=== PATIENT | female | born 1975 | race Caucasian/White ===

== ENCOUNTER 2020-11-18 08:33 | Outpatient (AMB) | payer BC, SELFPAY ==
[2020-11-18 08:57] VITALS: BP 130/80; PULSE 80; TEMP 36.1; O2SAT 98; BMI 34.4
--- NOTE | 2020-11-18 08:57 | MHC.PC.OV ---
Vital Signs 11/18/20 08:57 Height 5 ft 4 in Weight 201 lb BMI 34.4 BP 130/80 Pulse 80 Pulse Source Pulse Oximeter Temp 97.0 F Pulse Oximetry (%) 98 Oxygen Delivery Method Room Air HPI physical HPI Details Patient comes in today for her annual physical examination States that she feels okay Denies any headaches or dizziness Denies any chest pains, no SOB No nausea/vomiting, no abdominal pain No change in bowel habits noted Denies any acute urinary symptoms Needs her Montelukast Rx refilled [facility] Medical History (Updated 12/01/22 @ 09:23 by Que Higgins MD) Migraine Obesity (BMI 30-39.9) Anxiety Seasonal allergic rhinitis due to pollen Positive SARAH (antinuclear antibody) Surgical History History of foot surgery Family History Father Stomach cancer Mother Diabetes Hypertension CVD (cardiovascular disease) Brother Healthy adult Sister Healthy adult Daughter No problems noted. Social History Housing: House Alcohol intake: current Alcohol intake frequency: holidays/special occasions only Alcohol type: wine Patient Tobacco Use Status: Never used Tobacco e-Cigarette/Vaping Use: Never Used Second Hand Smoke Exposure: Yes service: No Current occupational status: employed Current occupational exposures/hazards: No Cognitive needs: No Hearing needs: No Vision needs: Yes Questionnaire PHQ-9 (HOL/HEY) Over the last 2 weeks, how often have you been bothered by any of the following problems? 1. Little interest or pleasure in doing things: not at all 2. Feeling down, depressed, or hopeless: not at all 3. Trouble falling or staying asleep, or sleeping too much: not at all 4. Feeling tired or having little energy: not at all 5. Poor appetite or overeating: not at all 6. Feeling bad about yourself - or that you are a failure or have let yourself or your family down: not at all 7. Trouble concentrating on things, such as reading the newspaper or watching television: not at all 8. Moving or speaking so slowly that other people could have noticed. Or the opposite - being so fidgety or restless that you have been moving around a lot more than usual: not at all 9. Thoughts that you would be better off or of hurting yourself in some way: not at all Total score: 0 Depression Screening Interpretation: Negative 55156 - PHQ-9 Billing: Yes Source: Developed by Drs. Luis Regalado, Yani Trinidad, Saurabh Urena and colleagues, with an educational hoiwe from [employer]. Thrive Questionnaire Declines Thrive assessment: No Date Thrive assessed: 11/18/20 I am a: Patient What is your living situation today?: I have a steady place to live Within the past 12 months, did the food you bought not last and you didn't have the money to get more?: Never true Within the past 12 months, did you worry whether your food would run out before you got money to buy more?: Never true Do you have trouble paying for medicines?: No Do you have trouble getting transportation to medical appointments?: No Do you have trouble paying your heating and electricity bill?: No Do you have trouble taking care of your child, family member or friend?: No Do you have trouble with day-to-day activities such as bathing, preparing meals, shopping, managing finances, etc.?: No Are you currently unemployed and looking for a job?: No Are you interested in more education?: No Currently or been in a relationship where the following occur: no concerns reported AUDIT C Alcohol Use Questionnaire (AUDIT-C) 1. How often do you have a drink containing alcohol?: Monthly or less 2. How many drinks containing alcohol do you have on a typical day when you are drinking?: 1 or 2 3. How often do you have six or more drinks on one occasion?: Never Total Score: 1 Score Reviewed/Action Taken: Yes AARON-7 AMB Questionnaire AARON-7 Date AARON - 7 assessed: 11/18/20 Feeling nervous, anxious, or on edge: 0 = Not at all Not being able to stop or control worryin = Not at all Worrying too much about different things: 0 = Not at all Trouble relaxin = Not at all Being so restless that it is hard to sit still: 0 = Not at all Becoming easily annoyed or irritable: 0 = Not at all Feeling afraid as if something awful might happen: 0 = Not at all Total AARON-7 score (0-4 normal; 5-9 mild; 10-14 moderate; 15-21 severe): 0 Source: Developed by Drs. Luis Regalado, Yani Trinidad, Saurabh Urena and colleagues, with an educational howie from [email or web address]. Review of Systems Const Denies anorexia, Denies body aches, Denies chills, Denies fatigue, Denies fever(s), Denies headache(s), Denies malaise and Denies weakness Eyes Denies blurry vision, Denies change in vision, Denies irritation, Denies itchy eyes and Denies other visual disturbances ENT Denies dysphagia, Denies dizziness, Denies ear discharge, Denies otalgia, Denies headache(s), Reports nasal congestion (on and off), Denies neck mass, Denies neck pain, Denies odynophagia, Denies sinus pain, Denies sinus pressure and Denies sore throat Card Denies chest pain at rest, Denies chest pain with activity, Denies rapid heart rate, Denies irregular heart rhythm, Denies palpitations, Denies dyspnea and Denies dyspnea on exertion Resp Denies chest congestion, Denies cough, Denies dyspnea, Denies dyspnea on exertion and Denies wheezing GI Denies abdominal pain, Denies bloating, Denies change in bowel habits, Denies constipation, Denies dysphagia, Denies heartburn, Denies diarrhea, Denies nausea, Denies odynophagia and Denies vomiting Denies hematuria, Denies urinary frequency, Denies dysuria, Denies urinary incontinence and Denies urinary urgency Musc Denies back pain, Denies arthralgias, Denies joint swelling, Denies muscle weakness and Denies neck pain Skin/Breast Denies breast pain, Denies breast mass, Denies change in pigmentation, Denies lesions, Denies rash and Denies unusual bruising Neuro Denies dizziness, Denies headache(s), Denies paresthesias and Denies weakness Psych Denies anxiety Endo Denies fatigue and Denies palpitations [place]/Lymph Denies easy bruising Aller/Immun Denies itchy eyes and Denies wheezing Physical exam (Primary Care) Vital Signs: Last Vital Signs Temp 97.0 F 11/18/20 08:57 Pulse 80 11/18/20 08:57 BP 130/80 11/18/20 08:57 Pulse Ox 98 11/18/20 08:57 Oxygen Delivery Method Room Air 11/18/20 08:57 BMI result Body Mass Index 34.4 Tobacco/Smoking Status: Tobacco use Status Tobacco use date assessed 11/18/20 11/18/20 09:04 Patient Tobacco Use Status Never used Tobacco 11/18/20 09:06 PHQ-9: Total score: 0 Depression Screening Interpretation: Negative Const General: no acute distress, alert and awake Orientation/consciousness: patient oriented x3 HENMT Head: Yes normal to inspection, Yes normocephalic and Yes atraumatic Ears: external ears normal, TM's normal bilaterally and EAC's normal General nose exam: Normal external nose present, No nasal polyps present and No nasal discharge present Face and sinus: Yes normal facial exam and Yes sinuses nontender Mouth: Normal oral and palatal mucosa present, tongue normal and oropharynx normal Teeth and gingiva: dentition normal Throat: Yes posterior oropharynx normal and Yes tonsils normal Eyes Eyelids: Yes eyelids normal Conjunctivae: conjunctivae normal Sclerae: sclerae normal Pupils: Equal, round and reactive pupils present EOM: EOMs intact bilaterally Neck Neck: Yes no lymphadenopathy and Yes supple Thyroid: Thyroid normal and no masses Lymphatic: no lymphadenopathy noted Resp Auscultation: clear to auscultation bilaterally, no crackles, no rales and no wheezes Cardio Rate: regular rate Rhythm: regular rhythm Heart sounds: no murmurs GI Palpation (GI): Soft to palpation, nontender, no guarding and No hepatosplenomegaly present Auscultation: normal bowel sounds General: Yes no CVA tenderness Back/Spine/Pelvis Back: no CVA tenderness Thoracic/Lumbar Spine: thoracic and lumbar spine normal to inspection Skin Lesions: no lesions Rashes: no rashes Neuro General: patient oriented x3 and CN's II-XI intact bilaterally Cranial nerves: Yes Equal, round and reactive pupils present Cognition (Neuro): normal cognition Gait exam (Neuro): Normal gait present Extrem General: Yes no clubbing, cyanosis or edema Assessment and Plan Assessment & Plan (1) Annual physical exam: Code(s): Z00.00 - Encounter for general adult medical examination without abnormal findings Plan: Check labs She is reportedly up-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 Is not due yet for screening colonoscopy (2) Positive SARAH (antinuclear antibody): Comment: has been tested for lupus - NEGATIVE Code(s): R76.8 - Other specified abnormal immunological findings in serum Plan: Will recheck her SARAH, RA and inflammatory markers for follow up Will also check her anti-DS DNA level for further evaluation Advised that if this comes back positive, will need to refer her to rheumatology for further evaluation and management of lupus (3) Seasonal allergic rhinitis due to pollen: Code(s): J30.1 - Allergic rhinitis due to pollen Plan: Continue Montelukast 10 mg QD (Rx refilled), Cetirizine 10 mg QD PRN and Rhinocort Allergy Suspension 32 mcg/act 1 spray in each nostril QD (4) Anxiety: Code(s): F41.9 - Anxiety disorder, unspecified Plan: Continue Citalopram 10 mg QD (5) Obesity (BMI 30-39.9): Code(s): E66.9 - Obesity, unspecified Plan: Reinforced diet/exercise as tolerated/lose weight Plan Follow up in 6 months Orders: Orders Complete Blood Count Auto Diff 11/18/20 Z00.00 - Encounter for general adult medical examination without abnormal findings Comprehensive [place]. Panel Fast 11/18/20 Z00.00 - Encounter for general adult medical examination without abnormal findings, R76.8 - Other specified abnormal immunological findings in serum, E66.9 - Obesity, unspecified UA CC w/rflx Micro + Cult 11/18/20 Z00.00 - Encounter for general adult medical examination without abnormal findings Erythrocyte Sedimentation Rate 11/18/20 M79.7 - Fibromyalgia, R76.8 - Other specified abnormal immunological findings in serum C Reactive Protein 11/18/20 R76.8 - Other specified abnormal immunological findings in serum SARAH Reflex Titer and Pattern 11/18/20 R76.8 - Other specified abnormal immunological findings in serum Anti DNA DS Antibody 11/18/20 R76.8 - Other specified abnormal immunological findings in serum Lipid Panel 11/18/20 Z00.00 - Encounter for general adult medical examination without abnormal findings, E66.9 - Obesity, unspecified TSH reflex Free T4 11/18/20 Z00.00 - Encounter for general adult medical examination without abnormal findings, R76.8 - Other specified abnormal immunological findings in serum, E66.9 - Obesity, unspecified Vitamin D 25-OH Total 11/18/20 E55.9 - Vitamin D deficiency, unspecified, Z00.00 - Encounter for general adult medical examination without abnormal findings Rheumatoid Factor 11/18/20 R76.8 - Other specified abnormal immunological findings in serum Medications: Changed From montelukast 1 tablet Orally Once a day 10 mg PO DAILY To montelukast 1 tablet Orally Once a day 10 mg PO DAILY 90 tabs 3RF 90 days Coding Level of Care Code Est Pt Prev Care 40-64y(14991) Diagnoses Annual physical exam Z00.00 Positive SARAH (antinuclear antibody) R76.8 Seasonal allergic rhinitis due to pollen J30.1 Anxiety F41.9 Obesity (BMI 30-39.9) E66.9 Additional Codes PHQ-9 - 28612 - PHQ-9 Billing: Yes ([id number])
== END 2020-11-18 10:35 ==
LOC: HO.HMGH 08:33
PROVIDERS: PCP Internal Medicine; Visit Provider Internal Medicine
DX: Z00.00 Encounter for general adult medical examination without abnormal findings (principal); R76.8 Other specified abnormal immunological findings in serum; J30.1 Allergic rhinitis due to pollen; F41.9 Anxiety disorder, unspecified; E66.9 Obesity, unspecified
CPT/HCPCS: 99396

== ENCOUNTER 2021-01-08 12:22 | Outpatient (REF) | payer BC, SELFPAY ==
[2021-01-08 13:14] LABS: Influenza A PCR NEGATIVE (Negative); Influenza B PCR NEGATIVE (Negative); Resp Syncy Virus RNA Qual PCR NEGATIVE (Negative); SARS COV2 PCR INHOUSE NEGATIVE (Negative)
== END 2021-01-08 12:23 | disposition home or self-care (01) ==
LOC: HO.LAB 12:22
PROVIDERS: PCP Internal Medicine; Visit Provider Internal Medicine
DX: Z20.822 Contact with and (suspected) exposure to COVID-19 (principal); R43.9 Unspecified disturbances of smell and taste
CPT/HCPCS: 0241U; 36415

== ENCOUNTER → 2021-07-11 13:53 | Outpatient (REF) | payer BC, SELFPAY ==
--- NOTE | 2021-07-11 13:59 | HM_ITS ---
* Total monitoring time 3 days, 5 hours. * Underlying rhythm is sinus. Average rate 81/Min. Range 52 to 158/Min. * No atrial fibrillation or flutter or AV blocks or pauses. * Occasional supraventricular ectopy with minimal burden. * Very rare ventricular ectopy with minimal burden. * No patient events. MTDD
--- NOTE | 2021-07-11 13:59 | CA_ITS ---
Transthoracic Echocardiogram Patient (Last, First, Middle): Ashlie Delgadillo, Gender: Female Date of : 1975 Age: 45 Procedure Date: 07/11/2021 Procedure Type: Transthoracic Echocardiogram Location: OP Height: 162.56 cm Weight: 89.81 kg BSA: 1.95 m2 Heart Rate: bpm BP: 122 / 86 mmHg Supervisor Machine Workers: VH/TO Referring MD: Que Higgins MD Field Operations Supervisor: Chaka Henry MD Symptoms: R06.00 - Dyspnea, unspecified Study Quality: Fair ECG Rhythm: Sinus Conclusions: - Essentially normal study Findings Left Ventricle Normal left ventricular size, thickness, and systolic function. The visually estimated ejection fraction is between 60-65%. Diastolic function is normal for age. Right Ventricle Normal right ventricular cavity size and systolic function. Atria Both atria are normal in size. There is no evidence of interatrial shunt. Aortic Valve The aortic valve structure and function is likely normal. There is no aortic valve stenosis. There is no aortic valve regurgitation. Mitral Valve Normal mitral valve structure and function. There is trace mitral valve regurgitation. There is no mitral valve stenosis. Pulmonic Valve The pulmonic valve was not well visualized. Tricuspid Valve Likely normal tricuspid valve structure and function. There is trace tricuspid valve regurgitation. The right ventricular systolic pressure is normal. The right ventricular systolic pressure is 32 mmHg. Normal right atrial pressure. There is no evidence of pulmonary hypertension. Great Vessels All visible segments of the aorta are normal in size. The pulmonary artery was not well visualized. Venous The inferior vena cava is normal in size and collapses greater than 50% with inspiration. Pericardium/Pleural There is no evidence of pericardial effusion. Prior Study Comparison No prior study available for comparison. Measurements 2D Linear Measurements IVSd: 0.65 0.6-0.9/0.6-1.0 cm LVIDd: 4.94 3.9-5.3/4.2-5.9 cm LVIDd Index: 2.53 2.4-3.2/2.2-3.1 cm/m2 LVIDs: 2.51 2.0-3.6 cm LVPWd: 0.71 0.7-1.1 cm LA Diam: 3.50 2.7-3.8/3.0-4.0 cm LAIDs Index: 1.79 1.5-2.3 cm/m2 LV Mass: 135.04 67-162/88-224 g LV Mass Index: 69.25 43-95/49-115 g/m2 LVOT Diam: 2.00 3.0+(-)1.3 cm 2D Systolic Function EF 4C: 60.00 >55% EF 2C: 66.00 >55% EF BiP: 63.70 >55% Mitral Valve MV Pk E: 1.11 MV PK A: 0.81 MV Decel Time: 139.00 E/A: 1.40 E'Lateral: 12.20 E'Medial: 10.40 E/E' Med: 10.70 E/E' Lat: 9.10 PHT: 41.00 MVA PHT: 5.37 Decel [place]: 7.98 Aortic Valve AoV Pk Jorge: 1.46 AoV Mn Jorge: 1.06 AoV VTI: 0.32 AoV Pk Grad: 9.00 Aov Mn Grad: 5.00 NARINDER Cont.VTI: 2.31 LVOT LVOT Pk Jorge: 1.15 LVOT Mn Jorge: 0.75 LVOT VTI: 0.24 LVOT Pk Grad: 5.00 LVOT Mn Grad: 3.00 LVOT Diam: 2.00 LVOT Area: 3.14 Diastolic Function MV Pk E: 1.11 MV Pk A: 0.81 E/A: 1.40 E'Medial: 10.40 E/E' Med: 10.70 E' Laterial: 12.20 E/E' Lat: 9.10 Right Ventricle TAPSE (mm): 32.00 TVS' Jorge: 13.00 Tricuspid Valve TR Pk Jorge: 2.70 TR Pk Grad: 29.00 RA Press: 3.00 RVSP: 32.00 Great Vessels Aorta Sinus of Valsalva: 2.90 2.0-3.5 cm Ao Asc: 2.90 2.1-3.4 cm Ao Arch: 2.50 Updated in Other Vendor System with Status of Final Chaka Henry MD electronically signed on 07/11/2021 4:12:53 PM with status of Final
== END ==
LOC: HO.CARD 13:53
PROVIDERS: Visit Provider Internal Medicine
DX: R00.2 Palpitations (principal); R06.00 Dyspnea, unspecified
CPT/HCPCS: 93242; 93306

== ENCOUNTER 2022-06-08 08:34 | Outpatient (REF) | payer BC, SELFPAY ==
[2022-06-08 08:51] LABS: MANUAL DIFF FLAG NO
[2022-06-08 09:20] LABS: Basophils Percent Auto 0.6 % (0-2); Eosinophils Absolute Auto 0.1 X10*3/uL (0.0-0.4); Eosinophils Percent Auto 1.7 % (0-4); Hemoglobin 13.7 g/dl (12.0-16.0); Imm Gran Abs Auto 0.01 X10*3/uL (0.00-0.03); Imm Gran Pct Auto 0.2 % (0.0-0.4); Lymphocytes Absolute Auto 2.1 X10*3/uL (1.2-4.9); Lymphocytes Percent Auto 32.6 % (20-40); Mean Corpuscular HGB Conc 33.4 g/dl (31.0-35.0); Mean Corpuscular Hemoglobin 28.2 pg (27.0-33.0); Mean Corpuscular Volume 84.5 fL (80.0-98.0); Mean Platelet Volume 9.7 fL (9.4-12.3); Monocytes Absolute Auto 0.5 X10*3/uL (0.1-1.2); Monocytes Percent Auto 6.9 % (2-11); Neutrophils Absolute Auto 3.8 x10*3/uL (2.0-8.3); Platelet Count 359 X10*3/uL (160-400); Red Blood Count 4.85 X10*6/uL (4.20-5.50); Red Cell Distribution Width 11.9 % (11.0-16.0); White Blood Count 6.6 X10*3/uL (4.8-10.8)
[2022-06-08 09:24] LABS: Appearance Urine Clear; Color Urine Yellow; Glucose Urine UA Negative (Negative); Leukocyte Esterase Urine Negative (Negative); Nitrite Urine Negative (Negative); Urine Blood Negative (Negative); Urine Ketones Negative (Negative); Urine Protein Negative (Neg-Trace)
[2022-06-08 10:09] LABS: Anion Gap 16 (12-20)
[2022-06-08 10:24] LABS: Alanine Aminotransferase 14 U/L (0-31); Alkaline Phosphatase 41 U/L (39-117); Aspartate Amino Transferase 17 U/L (5-31); Bilirubin Total 0.8 mg/dL (0.0-1.0); Calcium 9.4 mg/dL (8.4-10.2); Carbon Dioxide 23 mmol/L (22-29); Chloride 105 mmol/L (96-108); Cholesterol 208 mg/dL; Estimated Glomerular Filt Rate > 60; Glucose Fasting 91 mg/dL (60-99); HDL Cholesterol 61 mg/dL; LDL Cholesterol Calculated 122 mg/dl; Potassium 5.2 mmol/L (3.3-5.1); Sodium 139 mmol/L (135-145); Total Protein 6.9 g/dL (6.5-8.0); Triglycerides 128 mg/dL
[2022-06-08 10:40] LABS: Vitamin D 25-OH Total 33.7 ng/mL (>30)
[2022-06-08 12:01] LABS: Blood Urea Nitrogen 11 mg/dL (9-16)
[2022-06-12 13:08] LABS: Anti Nuclear Antibody Screen POSITIVE (NEGATIVE)
== END 2022-06-08 08:35 | disposition home or self-care (01) ==
LOC: HO.LAB 08:34
PROVIDERS: PCP Internal Medicine; Visit Provider Internal Medicine
DX: Z00.00 Encounter for general adult medical examination without abnormal findings (principal); E55.9 Vitamin D deficiency, unspecified; M25.50 Pain in unspecified joint; E78.00 Pure hypercholesterolemia, unspecified
CPT/HCPCS: 36415; 80053; 80061; 81003; 82306; 84443; 85025; 86038; 86039

== ENCOUNTER 2022-06-29 10:29 | Outpatient (REF) | payer BC, SELFPAY ==
--- NOTE | ~2022-06-29 | XR_ITS ---
EXAMINATION: XR CHEST 2 VIEWS CLINICAL INFORMATION: Respiratory disorders. COMPARISON: Chest radiographs dated 01/13/2018. TECHNIQUE: Frontal and lateral views of the chest were obtained. FINDINGS: The heart, great vessels, pulmonary vasculature and mediastinum are normal. The lungs show no focal infiltrate, effusion or pneumothorax. There is no acute osseous abnormality. XR/XR chest 2V IMPRESSION: No active cardiopulmonary disease.
== END 2022-06-29 10:30 | disposition home or self-care (01) ==
LOC: HO.XRAY 10:29
PROVIDERS: PCP Internal Medicine; Visit Provider Internal Medicine
DX: J98.8 Other specified respiratory disorders (principal)
CPT/HCPCS: 71046

== ENCOUNTER 2022-10-05 09:23 | Outpatient (AMB) | payer BC, SELFPAY ==
[2022-10-05 09:26] VITALS: BP 116/74; PULSE 77; TEMP 36.6; O2SAT 98; BMI 34.5
--- NOTE | 2022-10-05 09:26 | A.OFFVIS_ITS ---
Intake Vital Signs 10/05/22 09:26 Height 5 ft 4 in Weight 201 lb 0.985 oz BMI 34.5 BP 116/74 Blood Pressure Location Lt brachial Position Sitting Pulse 77 Temp 97.9 F Temp Source Skin Pulse Oximetry (%) 98 Intake Visit Reasons: + SARAH Intake Note: New pt presents today to discuss +SARAH. C/o pain in legs and hands, notices more pain when weather change. 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 She relates that she had limb pains as a child but no clear diagnosis was made. After she delivered her child about 6 years ago she seemed to developed more pains involving the wrists, hands, knees, calf muscles and lower back. There was no injury involved in these areas. She thinks the hands are occasionally swollen. She does not have really any hand paresthesias. Most of these pains are worse when she is more physically active. 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 In the past 2 weeks she has had a bit more pain in the left wrist, mostly on the volar aspect and the radial side where she feels a soft tissue lump. The right wrist is similarly painful but not as severe and she feels not really any lump there. She has trouble sleeping at night because of the pains. She has a history of anxiety disorder which is helped with citalopram. She takes natural supplements - turmeric and ibuprofen [id number] - which she thinks is helpful. She did see a gis professor 3- 4 years ago. This was to evaluate the SARAH. They prescribed hydroxychloroquine but she developed nausea and stopped it. Blood tests were done but they did not think she had any inflammatory or autoimmune disease. [facility] Medical History (Updated 10/05/22 @ 13:27 by Jerel Alberto MD) Anxiety Migraine Obesity (BMI 30-39.9) Positive SARAH (antinuclear antibody) Seasonal allergic rhinitis due to pollen Surgical History History of foot surgery Family History Father Stomach cancer Mother Diabetes Hypertension CVD (cardiovascular disease) Brother Healthy adult Sister Healthy adult Daughter No problems noted. Social History Housing: House Alcohol intake: current Alcohol intake frequency: holidays/special occasions only Alcohol type: wine Patient Tobacco Use Status: Never used Tobacco e-Cigarette/Vaping Use: Never Used Second Hand Smoke Exposure: Yes service: No Current occupational status: employed Cognitive needs: No Hearing needs: No Vision needs: No Female Reproductive History Menstrual Total pregnancies: 1 Number of Living Children: 1 Review of Systems Const Details: Daytime fatigue and sleepiness. Sleep is disrupted by rolling over and experiencing pain. Negative for appetite change, weight change, fever, chills, malaise Eyes Details: Itchy eyes at times attributed to allergies. She said allergy shots made her feel worse. She gets occasional headache she relates to sinusitis. Negative for vision change, dry eyes and dizziness ENT Details: Intermittent sinus congestion pain, sometimes associated with drainage from the left ear. She denies any hearing loss. Negative for hearing change, tinnitus, oral ulcer, nose bleeds and oral dryness. Card Details: Negative chest pain, edema and syncope Resp Details: Negative for SOB, cough and wheezing GI Details: Occasional heartburn. Negative nausea, abdominal pain, bowel changes, diarrhea, constipation and bloody stool. Details: Negative for dysuria, hematuria, nocturia, decreased force/flow and genital discharge Skin/Breast Details: She gets skin rash bone exposure to metal jewelry. Presently no itching, rash, hives, Raynaud's symptoms, sun sensitivity, and skin cancer Neuro Details: Negative for epilepsy, palsy, stroke, changes in speech, tingling and weakness Psych Details: Negative for anxiety, depression and stress Endo Details: Negative for polyuria and polydypsia [place]/Lymph Details: Negative for excessive bruising or bleeding. Physical Exam Vital Signs: Last Vital Signs Temp 97.9 F 10/05/22 09:26 Pulse 77 10/05/22 09:26 BP 116/74 10/05/22 09:26 Pulse Ox 98 10/05/22 09:26 BMI result Body Mass Index 34.5 APPEARANCE: Patient in no acute distress EYES no redness, pupils equal and reactive to light, eyelids normal EARS: Right: External ear normal, canal clear and tympanic membrane normal. Left: The ear canal seems normal. There is a slight bit of redness in the the superior aspect of the tympanic membrane. I think there is a defect in the membrane anteriorly. No drainage noted in the canal. NOSE/SINUS: Airflow through both nares, no nasal discharge, no bleeding THROAT: Oral mucosa moist, no ulcerations NECK: No thyromegaly or masses, no adenopathy, trachea midline. HEART: Regulrar rhythm, S1-S2 heard, no murmurs, rubs or gallops. LUNG: Clear to percussion and auscultation ABD: Normal bowel sounds, no organomegaly, masses or tenderness. EXTREMITIES: No edema, no calf tenderness, normal peripheral pulses. NEURO: Oriented and alert x3. No focal weakness. Reflexes symmetric. Gait normal. SKIN: No inflammatory or neoplastic lesions. Normal color and turgor JOINT EXAM:.?? Cervical Spine:.? Mild pain with extremes of motion. Slight cervical muscle tenderness. Thoracic Spine:.? No scoliosis.? No tenderness on palpation. Lumbar Spine:.? Alignment normal.? Mild pain with extremes of motion but no tenderness. Chest Wall:.? No tenderness, swelling, increased warmth or erythema. Hands:.? Normal pain-free range of motion without tenderness, swelling, increased warmth or erythema. Able to make a full fist and has a good gameplay engineer strength. Wrists: Right:? Normal pain-free range of motion with slight tenderness on the radial and volar aspect. That area has no swelling,increased warmth or erythema. Left: Mild pain felt on the radial aspect with the extremes of flexion or extension. There is some mild tenderness along the radial and volar aspect. There is a thickening in the soft tissues is suggestive of a ganglion cyst. No redness or warmth. Elbows:. Normal pain-free range of motion without tenderness, swelling, increased warmth or erythema. Shoulders:.?? Full range of motion without pain. No tenderness, weakness, swelling, increased warmth or erythema. Hips:.? Full range of motion without pain. Hip bursa:.? No tenderness. Knees:.?? Normal pain-free range of motion without tenderness, swelling, increased warmth or erythema.? There is no effusion or crepitation Ankles:.? Normal pain-free range of motion without tenderness, swelling, increased warmth or erythema. Feet:.? Normal pain-free range of motion without tenderness, swelling, increased warmth or erythema. Tender points:.? Mild tenderness to digital palpation at the trapezius, , lateral epicondyle, knees, greater trochanter area bilaterally. ? Results Reviewed Results Reviewed: Laboratory Tests 12/06/18 12/06/18 06/08/22 17:53 Unknown 08:50 WBC 6.6 Hgb 13.7 ESR 16 C-Reactive Protein 2.49 H TSH 06/08/22 08:50 WBC Hgb ESR C-Reactive Protein TSH 0.60 04/2199 labs from [facility]: SARAH positive but anti DNA negative Assessment & Plan Assessment & Plan (1) Arthralgia: Code(s): M25.50 - Pain in unspecified joint (2) Wrist pain, chronic: Code(s): M25.539 - Pain in unspecified wrist; G89.29 - Other chronic pain (3) Low back pain: Code(s): M54.50 - Low back pain, unspecified (4) Fatigue: Code(s): R53.83 - Other fatigue (5) Positive SARAH (antinuclear antibody): Code(s): R76.8 - Other specified abnormal immunological findings in serum Plan The patient has longstanding migratory joint pains. Today on exam she does not have that much tenderness except for the left wrist. There is no joint swelling. She does a very active job. I suspect the wrist pain is from some tendinitis although there may be also present a ganglion cyst. We will recheck some antibody studies for lupus given the persistently positive SARAH. Will also check urine for protein. The back pain is a longstanding complaint so I think we need to do an x-ray to look for sacroiliitis. There are many tender points so I think her major problem is likely to be fibromyalgia. She is already on an antidepressant. I suggested we try some nighttime cyclobenzaprine 10 mg, 1/2-1 tablet at night. I told her to start it on a night when she was not working the next day in case she gets some morning sedation. I think she has a perforated left tympanic membrane. She gets intermittent drainage there and has not seen ENT in about 3 years. I think it is reasonable to have that re-checked. I told her to call her ENT doctor. Also to further evaluate the daytime sleepiness and fatigue a sleep study may be helpful. She could contact her primary doctor to consider that further. I will get back to her with the results of her studies. Reiview of records, history and exam took 50 minutes. Orders: Orders XR hand wrist LT Today G89.29 - Other chronic pain, M25.539 - Pain in unspecified wrist XR hand wrist RT Today G89.29 - Other chronic pain, M25.539 - Pain in unspecified wrist C Reactive Protein Today R76.8 - Other specified abnormal immunological findings in serum Protein Creatinine Ratio, Ur Today R76.8 - Other specified abnormal immunological findings in serum Erythrocyte Sedimentation Rate Today R76.8 - Other specified abnormal immunological findings in serum Complement C3 Today R76.8 - Other specified abnormal immunological findings in serum Complement C4 Today R76.8 - Other specified abnormal immunological findings in serum Anti DNA DS Antibody Today R76.8 - Other specified abnormal immunological findings in serum Anti Extractable Nuclear Ag Today R76.8 - Other specified abnormal immunological findings in serum XR lumbar spine 2-3V Today M54.50 - Low back pain, unspecified Medications: New cyclobenzaprine 5 - 10 mg (0.5 - 1 x 10 mg) PO BEDTIME PRN 30 tabs 2RF muscle spasm M54.50 - Low back pain, unspecified Coding Level of Care Code New Pt Level 4 (74792) Diagnoses Arthralgia M25.50 Wrist pain, chronic M25.539; G89.29 Low back pain M54.50 Fatigue R53.83 Positive SARAH (antinuclear antibody) R76.8
== END 2022-10-05 10:41 | disposition home or self-care (01) ==
PROVIDERS: PCP Internal Medicine; Visit Provider Internal Medicine Rheumatology
DX: M25.50 Pain in unspecified joint (principal); M25.539 Pain in unspecified wrist; G89.29 Other chronic pain; M54.50 Low back pain, unspecified; R53.83 Other fatigue; R76.8 Other specified abnormal immunological findings in serum
CPT/HCPCS: 99204

== ENCOUNTER 2022-10-05 09:23 | Outpatient (REF) | payer BC, SELFPAY ==
--- NOTE | ~2022-10-05 | XR_ITS ---
EXAMINATION: XR LUMBOSACRAL SPINE CLINICAL INFORMATION: Pain COMPARISON: None available. TECHNIQUE: Three views of the lumbosacral spine. FINDINGS: The vertebral bodies and posterior elements are notable for mild generalized endplate spurring.. The disc spaces are preserved and the vertebral alignment is normal. The paraspinal soft tissues are normal. XR/XR lumbar spine 2-3V IMPRESSION: No acute findings. Mild endplate spurring.
--- NOTE | ~2022-10-05 | XR_ITS ---
Exam: Bilateral hands 3 views each. HISTORY: Pain. FINDINGS: Normal bone mineralization. No evidence for any degenerative or erosive arthritis. No soft tissue swelling or calcifications. XR/XR hand wrist LT IMPRESSION: Normal hands.
--- NOTE | ~2022-10-05 | XR_ITS ---
Exam: Bilateral hands 3 views each. HISTORY: Pain. FINDINGS: Normal bone mineralization. No evidence for any degenerative or erosive arthritis. No soft tissue swelling or calcifications. XR/XR hand wrist RT IMPRESSION: Normal hands.
== END 2022-10-05 09:24 | disposition home or self-care (01) ==
LOC: HO.XRAY 09:23
PROVIDERS: PCP Internal Medicine; Visit Provider Internal Medicine Rheumatology
DX: M54.50 Low back pain, unspecified (principal); R53.83 Other fatigue; R76.8 Other specified abnormal immunological findings in serum; M25.531 Pain in right wrist; M25.532 Pain in left wrist; M79.641 Pain in right hand; M79.642 Pain in left hand
CPT/HCPCS: 72100; 73110; 73130

== ENCOUNTER 2022-10-05 11:07 | Outpatient (REF) | payer BC, SELFPAY ==
[2022-10-05 13:30] LABS: C Reactive Protein 2.49 mg/dL (< or = 0.50)
[2022-10-05 14:22] LABS: Erythrocyte Sedimentation Rate 9 MM/HR (0-20)
[2022-10-05 14:38] LABS: Creatinine Urine 58.38 mg/dL; Total Protein Urine Random < 7 mg/dL (<12)
[2022-10-07 17:34] LABS: Anti DNA DS Antibody <1 IU/mL; SM/Ribonucleoprotein Ab <1.0 NEG AI (<1.0 NEG); Smith Protein <1.0 NEG AI (<1.0 NEG)
[2022-10-07 18:12] LABS: Complement C3 154 mg/dL (83-193)
== END 2022-10-05 11:08 | disposition home or self-care (01) ==
LOC: HO.10HDL 11:07
PROVIDERS: Visit Provider Internal Medicine Rheumatology
DX: R76.8 Other specified abnormal immunological findings in serum (principal)
CPT/HCPCS: 36415; 84156; 85652; 86140; 86160; 86225; 86235

== ENCOUNTER 2022-11-20 09:04 | Outpatient (REF) | payer BC, SELFPAY ==
--- NOTE | 2022-11-20 10:02 | PFT_ITS ---
FLOWS: 1. FEV1 109% of predicted at 3.16 L. 2. FVC 94% of predicted at 3.42 L. 3. FEV1 to FVC ratio of 0.92. 4. No bronchodilator response. LUNG VOLUMES: 1. Total lung capacity 99% of predicted at 5.04 L. 2. Residual volume 80% of predicted at 1.38 L. 3. Slow vital capacity 109% of predicted at 3.65 L. 4. Expiratory reserve volume 36% of predicted at 0.40 L. 5. Diffusion capacity is normal. IMPRESSION: No obstructive or restrictive ventilatory defect. No bronchodilator response. Decreased expiratory reserve volume suggests extrathoracic restriction, likely secondary to abdominal obesity. Suleiman Aviles MD AP/MODL / [id number]
== END 2022-11-20 09:05 | disposition home or self-care (01) ==
LOC: HO.RESP 09:04
PROVIDERS: PCP Internal Medicine; Visit Provider Internal Medicine
DX: R06.00 Dyspnea, unspecified (principal)
CPT/HCPCS: 94010; 94727; 94729

== ENCOUNTER → 2022-11-20 10:02 | Outpatient (BNV) | payer BC, SELFPAY | PROVIDERS: PCP Internal Medicine; Visit Provider Internal Medicine Pulmonary Disease | DX: R06.00 Dyspnea, unspecified (principal) | CPT/HCPCS: 94060; 94727; 94729 ==

== ENCOUNTER 2022-12-01 08:25 | Outpatient (AMB) | payer BC, SELFPAY ==
--- NOTE | 2022-12-01 08:39 | A.OFFPC_ITS ---
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 Accompanied by: Self / Same As Patient Allergies oxymetazoline [From Afrin (oxymetazoline)] Adverse Reaction (Mild, Verified 12/01/22 09:10) Swelling Medication List - Last Reconciled 12/01/22 by Que Higgins MD albuterol sulfate 90 mcg/actuation 2 puffs inhalation Q6H PRN 30 days astaxanthin 12 mg PO DAILY cetirizine (Zyrtec) 10 mg PO DAILY citalopram 20 mg PO DAILY 90 days coenzyme Q10 100 mg PO DAILY cyclobenzaprine 5 - 10 mg (0.5 - 1 x 10 mg) PO BEDTIME PRN evening primrose oil 500 mg PO DAILY lorazepam 0.5 mg PO TID PRN 30 days milk thistle 500 mg PO DAILY montelukast 10 mg PO DAILY 90 days multivitamin 1 tab PO DAILY norgestimate-ethinyl estradiol 0.18/0.215/0.25 mg-35 mcg (28) (Tri-Sprintec (28)) 1 tab PO DAILY turmeric root extract 2,250 mg PO DAILY Tobacco use date assessed: 06/29/22 Dental Screening Dental Screen Date: 12/01/22 Did you have a dental visit in the last 12 months?: Yes Did you have a dental problem in the last 6 months where you did not have access to dental care?: No Was dental information given to patient?: Patient has dentist HPI PE HPI Details Patient comes in today for her annual physical examination States that she feels okay Still has her usual allergies and states that she is starting to experience on and off nasal and sinus congestion again from her fall allergies Is currently taking Cetirizine and Montelukast daily and uses either OTC Astepro or Rhinocort Aqua nasal spray for her allergies, which she states help keep her allergy symptoms controlled She denies any headaches or dizziness Denies any chest pains, no increased SOB lately Recalls getting her [place] [facility] [place] and would like to know how she did on her test No nausea/vomiting, no abdominal pain and no change in bowel habits noted Denies any acute urinary symptoms States that she had her mammogram and her pap smear/ob gyn physician assistant exam done at [facility] about a year ago - was told that these came out negative She is scheduled to have these repeated/rechecked next month in December 2022 [facility] Medical History (Updated 12/01/22 @ 09:23 by Que Higgins MD) Migraine Obesity (BMI 30-39.9) Anxiety Seasonal allergic rhinitis due to pollen Positive SARAH (antinuclear antibody) Surgical History History of foot surgery Family History Father Stomach cancer Mother Diabetes Hypertension CVD (cardiovascular disease) Brother Healthy adult Sister Healthy adult Daughter No problems noted. Social History Housing: House Alcohol intake: current Alcohol intake frequency: holidays/special occasions only Alcohol type: wine Patient Tobacco Use Status: Never used Tobacco e-Cigarette/Vaping Use: Never Used Second Hand Smoke Exposure: Yes service: No Current occupational status: employed Current occupational exposures/hazards: No Cognitive needs: No Hearing needs: No Vision needs: Yes Questionnaire PHQ-9 Over the last 2 weeks, how often have you been bothered by any of the following problems? 1. Little interest or pleasure in doing things: not at all 2. Feeling down, depressed, or hopeless: not at all 3. Trouble falling or staying asleep, or sleeping too much: not at all 4. Feeling tired or having little energy: not at all 5. Poor appetite or overeating: not at all 6. Feeling bad about yourself - or that you are a failure or have let yourself or your family down: not at all 7. Trouble concentrating on things, such as reading the newspaper or watching television: not at all 8. Moving or speaking so slowly that other people could have noticed. Or the opposite - being so fidgety or restless that you have been moving around a lot more than usual: not at all 9. Thoughts that you would be better off or of hurting yourself in some way: not at all Total score: 0 Depression Screening Interpretation: Negative [id number] - PHQ-9 Billing: Yes Source: Developed by Drs. Luis Regalado, Yani Trinidad, Saurabh Urena and colleagues, with an educational howie from [employer]. Thrive Questionnaire Date Thrive assessed: 12/01/22 I am a: Patient What is your living situation today?: I have a steady place to live Within the past 12 months, did the food you bought not last and you didn't have the money to get more?: Never true Within the past 12 months, did you worry whether your food would run out before you got money to buy more?: Never true Do you have trouble paying for medicines?: No Do you have trouble getting transportation to medical appointments?: No Do you have trouble paying your heating and electricity bill?: No Do you have trouble taking care of your child, family member or friend?: No Do you have trouble with day-to-day activities such as bathing, preparing meals, shopping, managing finances, etc.?: No Are you currently unemployed and looking for a job?: No Are you interested in more education?: No Currently or been in a relationship where the following occur: no concerns reported AUDIT C Alcohol Use Questionnaire (AUDIT-C) 1. How often do you have a drink containing alcohol?: Never 2. How many drinks containing alcohol do you have on a typical day when you are drinking?: 1 or 2 3. How often do you have six or more drinks on one occasion?: Never Total Score: 0 Score Reviewed/Action Taken: Yes AARON-7 AMB Questionnaire AARON-7 Date AARON - 7 assessed: 05/19/21 Source: Developed by Drs. Luis Regalado, Yani Trinidad, Saurabh Urena and colleagues, with an educational howie from [employer]. Review of Systems Const Denies chills, Reports difficulty sleeping (at times), Denies fatigue, Denies fever(s) and Denies headache(s) Eyes Denies blurry vision, Denies irritation and Denies itchy eyes ENT Denies dysphagia, Denies dizziness, Denies otalgia, Denies headache(s), Reports nasal congestion (on and off), Denies neck pain, Denies odynophagia, Denies sinus pain and Denies sore throat Card Denies chest pain, Denies palpitations and Reports dyspnea (on and off - chest feels tight at times) Resp Denies chest congestion, Reports cough (occasional, non-productive), Reports dyspnea (on and off - chest feels tight at times) and Denies wheezing GI Denies abdominal pain, Denies constipation, Denies dysphagia, Denies heartburn, Denies diarrhea, Denies nausea, Denies odynophagia and Denies vomiting Denies difficulty voiding, Denies nocturia and Denies dysuria Musc Denies back pain, Denies arthralgias, Denies joint swelling, Denies muscle weakness and Denies neck pain Skin/Breast Denies breast pain, Denies breast mass, Denies change in pigmentation, Denies lesions, Denies rash and Denies unusual bruising Neuro Denies dizziness and Denies headache(s) Psych Denies anxiety and Denies depression Endo Denies fatigue and Denies palpitations [place]/Lymph Denies easy bruising Aller/Immun Denies itchy eyes and Denies wheezing Physical exam (Primary Care) Vital Signs: Last Vital Signs BP 114/78 12/01/22 08:40 BMI result Body Mass Index 34.8 Tobacco/Smoking Status: Tobacco use Status Tobacco use date assessed 06/29/22 12/01/22 08:44 Patient Tobacco Use Status Never used Tobacco 12/01/22 08:44 e-Cigarette/Vaping Use Never Used 12/01/22 08:44 Depression Screening Interpretation: Negative Thrive Assessment: Date of Thrive Assessment Date Thrive assessed 06/29/22 12/01/22 08:44 Currently or been in a relationship where the following occur: no concerns reported Const General: no acute distress and alert Orientation/consciousness: patient oriented x3 HENMT Head: Yes normocephalic and Yes atraumatic Ears: TM's normal bilaterally and EAC's normal General nose exam: No nasal discharge present Face and sinus: No sinus tenderness Teeth and gingiva: dentition normal Throat: Yes posterior oropharynx normal and Yes tonsils normal (no TP congestion) Eyes Eyelids: Yes eyelids normal Conjunctivae: conjunctivae normal Pupils: Equal, round and reactive pupils present EOM: EOMs intact bilaterally Neck Neck: Yes no lymphadenopathy and Yes supple Thyroid: Thyroid normal Resp Auscultation: clear to auscultation bilaterally, no rales and no wheezes Cardio Rate: regular rate Rhythm: regular rhythm Heart sounds: no murmurs GI Palpation (GI): Soft to palpation, nontender and No hepatosplenomegaly present Auscultation: normal bowel sounds General: Yes no CVA tenderness Back/Spine/Pelvis Back: no CVA tenderness Thoracic/Lumbar Spine: thoracic and lumbar spine normal to inspection Skin Lesions: no lesions Rashes: no rashes Neuro General: patient oriented x3, moves all extremities, no focal motor deficits and CN's II-XI intact bilaterally Cranial nerves: Yes Equal, round and reactive pupils present Cognition (Neuro): normal cognition Gait exam (Neuro): Normal gait present Extrem General: Yes no clubbing, cyanosis or edema Assessment and Plan Assessment & Plan (1) Annual physical exam: Code(s): Z00.00 - Encounter for general adult medical examination without abnormal findings Plan: Check labs She is scheduled for her annual mammogram and pap smear/ob gyn physician assistant exam at [facility] next month (2) Seasonal allergic rhinitis due to pollen: Code(s): J30.1 - Allergic rhinitis due to pollen Plan: Continue Montelukast 10 mg QD, Cetirizine 10 mg QD PRN and Rhinocort Allergy Suspension 32 mcg/act 1 to 2 sprays into each nostril BID PRN (3) Dyspnea: Code(s): R06.00 - Dyspnea, unspecified Qualifiers: Dyspnea type: unspecified Qualified Code(s): R06.00 - Dyspnea, un specified Plan: Is most likely related to her allergies (often worst in the spring); advised that her anxiety is also likely making her symptoms feels worse than they actually are Repeat chest x-rays done last June 2022 came out normal PFTs done [place] [facility] [place] also came out grossly normal (4) Intermittent palpitations: Code(s): R00.2 - Palpitations Plan: States that her symptoms (palpitations) occur rarely now Holter monitor and echocardiogram done in June 2021 all came out unrevealing/normal (5) Positive SARAH (antinuclear antibody): Comment: has been tested for lupus - NEGATIVE Code(s): R76.8 - Other specified abnormal immunological findings in serum Plan: Her SARAH came back positive on her labs done at [facility] [place] couple of years ago and again here at [facility] earlier this year (2022) but her double stranded anti-DNA Ab came back negative, which effectively rules out lupus This was rechecked by rheumatology a couple of months ago, which again came back negative She has been advised that her joint symptoms are most likely due to tendinitis Follow up with rheumatology as scheduled or as needed (6) Anxiety: Code(s): F41.9 - Anxiety disorder, unspecified Plan: Continue her Citalopram 10 mg QD and Lorazepam 0.5 mg TID PRN - feels that she is doing well on her current Rx (7) Obesity (BMI 30-39.9): Code(s): E66.9 - Obesity, unspecified Plan: Reinforced diet/exercise as tolerated/lose weight (8) Colon cancer screening: Code(s): Z12.11 - Encounter for screening for malignant neoplasm of colon Plan: Will refer to GI for screening colonoscopy - this will be her index screen as she has never had a colonoscopy done before Plan Follow up in 4 months Orders: Orders Comprehensive [place]. Panel Fast Today E78.00 - Pure hypercholesterolemia, unspecified, Z00.00 - Encounter for general adult medical examination without abnormal findings Lipid Panel Today E78.00 - Pure hypercholesterolemia, unspecified, Z00.00 - Encounter for general adult medical examination without abnormal findings UA CC w/rflx Micro + Cult Today R30.0 - Dysuria, Z00.00 - Encounter for general adult medical examination without abnormal findings Vitamin D 25-OH Total Today E55.9 - Vitamin D deficiency, unspecified, Z00.00 - Encounter for general adult medical examination without abnormal findings Erythrocyte Sedimentation Rate Today M79.7 - Fibromyalgia, Z00.00 - Encounter for general adult medical examination without abnormal findings Complete Blood Count Auto Diff Today Z00.00 - Encounter for general adult medical examination without abnormal findings TSH reflex Free T4 Today E78.00 - Pure hypercholesterolemia, unspecified, Z00.00 - Encounter for general adult medical examination without abnormal findings Referrals Gastroenterology Referral Z12.11 - Encounter for screening for malignant neoplasm of colon Coding Level of Care Code Est Pt Prev Care 40-64y([id number]) Diagnoses Annual physical exam Z00.00 Seasonal allergic rhinitis due to pollen J30.1 Dyspnea, unspecified type R06.00 Dyspnea type: unspecified Intermittent palpitations R00.2 Positive SARAH (antinuclear antibody) R76.8 Anxiety F41.9 Obesity (BMI 30-39.9) E66.9 Colon cancer screening Z12.11
[2022-12-01 08:40] VITALS: BP 114/78; BMI 34.8
== END 2022-12-01 09:38 | disposition home or self-care (01) ==
PROVIDERS: PCP Internal Medicine; Visit Provider Internal Medicine
DX: Z00.00 Encounter for general adult medical examination without abnormal findings (principal); F41.9 Anxiety disorder, unspecified; E66.9 Obesity, unspecified; Z68.34 Body mass index [BMI] 34.0-34.9, adult; J30.1 Allergic rhinitis due to pollen; R00.2 Palpitations
CPT/HCPCS: 99396

== ENCOUNTER 2023-06-07 10:27 | Outpatient (REF) | payer BC, SELFPAY ==
[2023-06-07 10:49] LABS: MANUAL DIFF FLAG NO
[2023-06-07 11:28] LABS: Appearance Urine Clear; Color Urine Yellow; Glucose Urine UA Negative (Negative); Leukocyte Esterase Urine Negative (Negative); Nitrite Urine Negative (Negative); Urine Blood Negative (Negative); Urine Ketones Negative (Negative); Urine Protein Negative (Neg-Trace)
[2023-06-07 11:40] LABS: Basophils Percent Auto 0.5 % (0-2); Eosinophils Absolute Auto 0.1 X10*3/uL (0.0-0.4); Eosinophils Percent Auto 2.2 % (0-4); Hematocrit 42.8 % (37.0-47.0); Hemoglobin 14.1 g/dl (12.0-16.0); Imm Gran Abs Auto 0.02 X10*3/uL (0.00-0.03); Imm Gran Pct Auto 0.3 % (0.0-0.4); Lymphocytes Absolute Auto 1.6 X10*3/uL (1.2-4.9); Lymphocytes Percent Auto 25.8 % (20-40); Mean Corpuscular HGB Conc 32.9 g/dl (31.0-35.0); Mean Corpuscular Hemoglobin 27.5 pg (27.0-33.0); Mean Corpuscular Volume 83.6 fL (80.0-98.0); Mean Platelet Volume 10.2 fL (9.4-12.3); Monocytes Absolute Auto 0.4 X10*3/uL (0.1-1.2); Neutrophils Absolute Auto 4.1 x10*3/uL (2.0-8.3); Neutrophils Percent Auto 65.2 % (45-73); Platelet Count 345 X10*3/uL (160-400); Red Blood Count 5.12 X10*6/uL (4.20-5.50); Red Cell Distribution Width 12.4 % (11.0-16.0); White Blood Count 6.3 X10*3/uL (4.8-10.8)
[2023-06-07 12:18] LABS: Erythrocyte Sedimentation Rate 10 MM/HR (0-20)
[2023-06-07 12:27] LABS: Alanine Aminotransferase 14 U/L (0-31); Alkaline Phosphatase 51 U/L (39-117); Anion Gap 13 (12-20); Aspartate Amino Transferase 19 U/L (5-31); Bilirubin Total 0.5 mg/dL (0.0-1.0); Blood Urea Nitrogen 9 mg/dL (9-16); Calcium 8.9 mg/dL (8.4-10.2); Carbon Dioxide 22 mmol/L (22-29); Chloride 109 mmol/L (96-108); Cholesterol 222 mg/dL (<200); Estimated Glomerular Filt Rate > 60; Glucose Fasting 92 mg/dL (60-99); HDL Cholesterol 50 mg/dL (>40); LDL Cholesterol Calculated 155 mg/dL (<100); Potassium 4.7 mmol/L (3.3-5.1); Sodium 139 mmol/L (135-145); Total Protein 7.5 g/dL (6.5-8.0); Triglycerides 89 mg/dL (<150)
[2023-06-07 12:32] LABS: TSH reflex Free T4 0.55 uIU/mL (0.32-4.0); Vitamin D 25-OH Total 35.6 ng/mL (>30)
== END 2023-06-07 10:28 | disposition home or self-care (01) ==
LOC: HO.LAB 10:27
PROVIDERS: PCP Internal Medicine; Visit Provider Internal Medicine
DX: Z00.00 Encounter for general adult medical examination without abnormal findings (principal); E55.9 Vitamin D deficiency, unspecified; E78.00 Pure hypercholesterolemia, unspecified; R30.0 Dysuria; M79.7 Fibromyalgia
CPT/HCPCS: 36415; 80053; 80061; 81003; 82306; 84443; 85025; 85652

== ENCOUNTER 2023-06-21 15:08 | Outpatient (AMB) | payer BC, SELFPAY ==
--- NOTE | 2023-06-21 15:15 | A.OFFPC_ITS ---
Vital Signs 06/21/23 15:17 Height 5 ft 4 in Weight 193 lb 8 oz BMI 33.2 BP 110/72 Blood Pressure Location Lt brachial Position Sitting Pulse 96 Pulse Source Pulse Oximeter Pulse Oximetry (%) 97 Oxygen Delivery Method Room Air Intake Visit Reasons: allergic rhinitis, anxiety Intake Note: Patient is here to follow up on Allergic rhinitis, Anxiety and Lab results . Complaint of coughing Kiln Cleaner Required: No Cto: Not Required per policy Accompanied by: Self / Same As Patient Allergies oxymetazoline [From Afrin (oxymetazoline)] Adverse Reaction (Mild, Verified 06/21/23 15:52) Swelling Medication List - Last Reconciled 06/21/23 by Que Higgins MD albuterol sulfate 90 mcg/actuation 2 puffs inhalation Q6H PRN 30 days amoxicillin-pot clavulanate 875-125 mg 1 tab PO BID 10 days astaxanthin 12 mg PO DAILY cetirizine (Zyrtec) 10 mg PO DAILY coenzyme Q10 100 mg PO DAILY evening primrose oil 500 mg PO DAILY lorazepam 0.5 mg PO TID PRN 30 days montelukast 10 mg PO DAILY 90 days norgestimate-ethinyl estradiol 0.18/0.215/0.25 mg-35 mcg (28) (Tri-Sprintec (28)) 1 tab PO DAILY turmeric root extract 2,250 mg PO DAILY Tobacco use date assessed: 06/21/23 Dental Screening Dental Screen Date: 06/21/23 Did you have a dental visit in the last 12 months?: Yes Did you have a dental problem in the last 6 months where you did not have access to dental care?: No Was dental information given to patient?: Patient has dentist HPI allergic rhinitis, anxiety HPI Details Patient comes in for her follow up visit Relates that she was experiencing increased cough and congestion for at least a couple of weeks and she eventually went to a local urgent care center for further evaluation late last week where she was reportedly diagnosed with pneumonia States that she's had chest x-rays done at the walk-in clinic back then She was prescribed Azithromycin x 5 days as well as Augmentin - states that she just finished her Azithromycin a couple of days ago and is currently still finishing up her Augmentin Feels that her respiratory symptoms have improved somewhat but she still feels congested in her chest and she still has a recurrent cough but denies any SOB - is coughing up some whitish phlegm at times She denies any fever or sore throat Denies any headaches or dizziness Denies any chest pains No nausea/vomiting, no abdominal pain No change in bowel habits noted She had her follow up labs done a couple of weeks ago - to discuss her results Also needs her yearly FMLA forms filled out again [facility] Medical History (Updated 06/22/23 @ 05:23 by Que Higgins MD) Pure hypercholesterolemia Migraine Obesity (BMI 30-39.9) Anxiety Seasonal allergic rhinitis due to pollen Positive SARAH (antinuclear antibody) Surgical History History of foot surgery Family History Father Stomach cancer Mother Diabetes Hypertension CVD (cardiovascular disease) Brother Healthy adult Sister Healthy adult Daughter No problems noted. Social History Housing: House Alcohol intake: current Alcohol intake frequency: holidays/special occasions only Alcohol type: wine Patient Tobacco Use Status: Never used Tobacco e-Cigarette/Vaping Use: Never Used Second Hand Smoke Exposure: Yes service: No Current occupational status: employed Current occupational exposures/hazards: No Cognitive needs: No Hearing needs: No Vision needs: Yes (glasses) Questionnaire PHQ-9 Over the last 2 weeks, how often have you been bothered by any of the following problems? 1. Little interest or pleasure in doing things: not at all 2. Feeling down, depressed, or hopeless: not at all 3. Trouble falling or staying asleep, or sleeping too much: not at all 4. Feeling tired or having little energy: not at all 5. Poor appetite or overeating: not at all 6. Feeling bad about yourself - or that you are a failure or have let yourself or your family down: not at all 7. Trouble concentrating on things, such as reading the newspaper or watching television: not at all 8. Moving or speaking so slowly that other people could have noticed. Or the opposite - being so fidgety or restless that you have been moving around a lot more than usual: not at all 9. Thoughts that you would be better off or of hurting yourself in some way: not at all Total score: 0 Depression Screening Interpretation: Negative Depression Screening Done: Yes 47273 - PHQ-9 Billing: Yes Source: Developed by Drs. Luis Regalado, Yani Trinidad, Saurabh Urena and colleagues, with an educational howie from [employer]. Thrive Questionnaire Date Thrive assessed: 06/21/23 I am a: Patient What is your living situation today?: I have a steady place to live Within the past 12 months, did the food you bought not last and you didn't have the money to get more?: Never true Within the past 12 months, did you worry whether your food would run out before you got money to buy more?: Never true Do you have trouble paying for medicines?: No Do you have trouble getting transportation to medical appointments?: No Do you have trouble paying your heating and electricity bill?: No Do you have trouble taking care of your child, family member or friend?: No Do you have trouble with day-to-day activities such as bathing, preparing meals, shopping, managing finances, etc.?: No Are you currently unemployed and looking for a job?: No Are you interested in more education?: No Currently or been in a relationship where the following occur: no concerns reported THRIVE Score: 0 AUDIT C Alcohol Use Questionnaire (AUDIT-C) 1. How often do you have a drink containing alcohol?: Never 3. How often do you have six or more drinks on one occasion?: Never Total Score: 0 Score Reviewed/Action Taken: Yes AARON-7 AMB Questionnaire AARON-7 Date AARON - 7 assessed: 06/21/23 Feeling nervous, anxious, or on edge: 0 = Not at all Not being able to stop or control worryin = Not at all Worrying too much about different things: 0 = Not at all Trouble relaxin = Not at all Being so restless that it is hard to sit still: 0 = Not at all Becoming easily annoyed or irritable: 0 = Not at all Feeling afraid as if something awful might happen: 0 = Not at all Total AARON-7 score (0-4 normal; 5-9 mild; 10-14 moderate; 15-21 severe): 0 Source: Developed by Drs. Luis Regalado, Yani Trinidad, Saurabh Urena and colleagues, with an educational howie from [employer]. Review of Systems Const Denies chills, Reports fatigue (mild), Denies fever(s) and Denies headache(s) ENT Denies dysphagia, Denies dizziness, Denies otalgia, Denies headache(s), Denies neck pain, Denies odynophagia and Denies sore throat Card Denies chest pain, Denies palpitations and Denies dyspnea Resp Reports chest congestion (mild), Reports cough (recurrent - coughs up minimal whitish phlegm at times), Denies dyspnea and Denies wheezing GI Denies abdominal pain, Denies constipation, Denies dysphagia, Denies heartburn, Denies diarrhea, Denies nausea, Denies odynophagia and Denies vomiting Denies difficulty voiding, Denies nocturia, Denies dysuria and Denies urinary urgency Musc Denies back pain and Denies neck pain Skin/Breast Denies rash Neuro Denies dizziness and Denies headache(s) Endo Reports fatigue (mild) and Denies palpitations Aller/Immun Denies wheezing Physical exam (Primary Care) Vital Signs: Last Vital Signs Pulse 96 06/21/23 15:17 BP 110/72 06/21/23 15:17 Pulse Ox 97 06/21/23 15:17 Oxygen Delivery Method Room Air 06/21/23 15:17 BMI result Body Mass Index 33.2 Tobacco/Smoking Status: Tobacco use Status Tobacco use date assessed 06/21/23 06/21/23 15:19 Patient Tobacco Use Status Never used Tobacco 06/21/23 15:19 e-Cigarette/Vaping Use Never Used 06/21/23 15:19 PHQ-9: PHQ-9 Score PHQ-9: Total score 0 06/21/23 16:00 Depression Screening Interpretation: Negative Thrive Assessment: Date of Thrive Assessment Date Thrive assessed 06/21/23 06/21/23 15:19 Currently or been in a relationship where the following occur: no concerns reported Const General: no acute distress and alert HENMT Ears: TM's normal bilaterally and EAC's normal Throat: Yes posterior oropharynx normal and Yes tonsils normal (no TP congestion) Neck Neck: Yes no lymphadenopathy and Yes supple Thyroid: Thyroid normal Resp Auscultation: no crackles, no rales, rhonchi (scattered) throughout and wheezes (occasional, faint) expiratory wheezes Cardio Rate: regular rate Rhythm: regular rhythm Heart sounds: no murmurs GI Palpation (GI): Soft to palpation and nontender Auscultation: normal bowel sounds General: Yes no CVA tenderness Back/Spine/Pelvis Back: no CVA tenderness Thoracic/Lumbar Spine: No lumbar spinal tenderness Skin Rashes: no rashes Extrem General: Yes no clubbing, cyanosis or edema Results Reviewed Results Reviewed: Laboratory Tests 06/07/23 06/07/23 10:45 10:46 WBC 6.3 Hgb 14.1 Hct 42.8 Plt Count 345 ESR 10 Sodium 139 Potassium 4.7 Creatinine 0.84 Estimated GFR > 60 Fasting Glucose 92 Calcium 8.9 AST 19 ALT 14 Triglycerides 89 Cholesterol 222 H LDL Cholesterol, Calc 155 H HDL Cholesterol 50 25-OH Vitamin D Total 35.6 TSH 0.55 Urine pH 5.0 Ur Specific [place]ck[place] 1.010 Urine Protein Negative Urine Glucose (UA) Negative Urine Blood Negative Urine Nitrite Negative Ur Leukocyte Esterase Negative Assessment and Plan Assessment & Plan (1) Pure hypercholesterolemia: Code(s): E78.00 - Pure hypercholesterolemia, unspecified Plan: Results of her labs done a couple of weeks ago reviewed and discussed with patient - she is advised that her cholesterol levels have increased significantly from previous and her LDL cholesterol is now at 155 mg/dl Reinforced low cholesterol diet Will have patient recheck her labs and fasting lipids in 4 months for follow up (2) Pneumonia: Code(s): J18.9 - Pneumonia, unspecified organism Qualifiers: Pneumonia type: due to unspecified organism Laterality: unspecified laterality Lung location: unspecified part of lung Qualified Code(s): J18.9 - Pneumonia, unspecified organism Plan: Continue Augmentin 875 mg BID; S/P 5 days of Azithromycin recently Have advised patient to continue using her Albuterol HFA 2 inhalations Q 6 hours PRN for symptomatic relief She is advised to call for further instructions if her respiratory symptoms do not clear up completely over the next 2 to 3 weeks or if her symptoms start getting worse again once she completes her current Augmentin Rx (3) Intermittent palpitations: Code(s): R00.2 - Palpitations Plan: States that her symptoms (palpitations) occur rarely now Holter monitor and echocardiogram done in June 2021 all came out unrevealing/normal (4) Seasonal allergic rhinitis due to pollen: Code(s): J30.1 - Allergic rhinitis due to pollen Plan: Continue Montelukast 10 mg QD, Cetirizine 10 mg QD PRN and Rhinocort Allergy Suspension 32 mcg/act 1 to 2 sprays into each nostril BID PRN (5) Positive SARAH (antinuclear antibody): Comment: has been tested for lupus - NEGATIVE Code(s): R76.8 - Other specified abnormal immunological findings in serum Plan: Her SARAH came back positive on her labs done at [facility] and [facility] a couple of years ago and again here at [facility] last year (2022) but her double stranded anti-DNA Ab came back negative, which rules out lupus This was rechecked by rheumatology a few months ago, which again came back negative and she has been advised by rheumatology that her joint symptoms are most likely due to tendinitis Follow up with rheumatology as scheduled or as needed (6) Anxiety: Code(s): F41.9 - Anxiety disorder, unspecified Plan: Continue Citalopram 10 mg QD and Lorazepam 0.5 mg TID PRN - feels that she is doing well on her current Rx (7) Obesity (BMI 30-39.9): Code(s): E66.9 - Obesity, unspecified Plan: Reinforced diet/exercise as tolerated/lose weight Plan Follow up in 4 months Her FMLA forms have also been filled out and completed today - patient will be contacted to come by the office and pick these up at any time Orders: Orders Comprehensive [place]. Panel Fast 4 Months E78.00 - Pure hypercholesterolemia, unspecified Lipid Panel 4 Months E78.00 - Pure hypercholesterolemia, unspecified Coding Level of Care Code Est Pt Level 4 (22406) Diagnoses Pure hypercholesterolemia E78.00 Pneumonia due to infectious organism, unspecified laterality, unspecified part of lung J18.9 Pneumonia type: due to unspecified organism Laterality: unspecified laterality Lung location: unspecified part of lung Intermittent palpitations R00.2 Seasonal allergic rhinitis due to pollen J30.1 Positive SARAH (antinuclear antibody) R76.8 Anxiety F41.9 Obesity (BMI 30-39.9) E66.9
[2023-06-21 15:17] VITALS: BP 110/72; PULSE 96; O2SAT 97; BMI 33.2
== END 2023-06-21 16:13 | disposition home or self-care (01) ==
PROVIDERS: PCP Internal Medicine; Visit Provider Internal Medicine
DX: E78.00 Pure hypercholesterolemia, unspecified (principal); E66.9 Obesity, unspecified; Z68.33 Body mass index [BMI] 33.0-33.9, adult; J18.9 Pneumonia, unspecified organism; R00.2 Palpitations; J30.1 Allergic rhinitis due to pollen; R76.8 Other specified abnormal immunological findings in serum; F41.9 Anxiety disorder, unspecified
CPT/HCPCS: 99214

== ENCOUNTER 2024-02-05 07:09 | Outpatient (REF) | payer BC, SELFPAY ==
[2024-02-05 08:15] LABS: Alanine Aminotransferase 22 U/L (0-31); Albumin Level 3.9 g/dL (3.5-5.0); Alkaline Phosphatase 55 U/L (39-117); Anion Gap 12 (12-20); Aspartate Amino Transferase 22 U/L (5-31); Bilirubin Total 0.9 mg/dL (0.0-1.0); Blood Urea Nitrogen 9 mg/dL (9-16); Calcium 9.3 mg/dL (8.4-10.2); Carbon Dioxide 26 mmol/L (22-29); Chloride 105 mmol/L (96-108); Cholesterol 231 mg/dL (<200); Estimated Glomerular Filt Rate > 60; Glucose Fasting 96 mg/dL (60-99); HDL Cholesterol 56 mg/dL (>40); LDL Cholesterol Calculated 150 mg/dL (<100); Potassium 4.1 mmol/L (3.3-5.1); Sodium 139 mmol/L (135-145); Total Protein 6.8 g/dL (6.5-8.0); Triglycerides 126 mg/dL (<150)
== END 2024-02-05 07:10 | disposition home or self-care (01) ==
LOC: HO.LAB 07:09
PROVIDERS: PCP Internal Medicine; Visit Provider Internal Medicine
DX: E78.00 Pure hypercholesterolemia, unspecified (principal)
CPT/HCPCS: 36415; 80053; 80061

== ENCOUNTER 2024-02-11 13:01 | Outpatient (AMB) | payer BC, SELFPAY ==
--- NOTE | 2024-02-11 13:20 | MHC.PC.OV ---
Vital Signs 02/11/24 13:30 Height 5 ft 4 in Weight 188 lb 8 oz BMI 32.4 BP 106/70 Blood Pressure Location Lt brachial Position Sitting Pulse 74 Pulse Source Pulse Oximeter Pulse Oximetry (%) 98 Oxygen Delivery Method Room Air Intake Visit Reasons: hyperlipidemia, allergic rhinitis Director Surgical Required: No Accompanied by: Self / Same As Patient Allergies oxymetazoline [From Afrin (oxymetazoline)] Adverse Reaction (Mild, Verified 02/11/24 13:41) Swelling Medication List - Last Reconciled 02/11/24 by Que Higgins MD albuterol sulfate 90 mcg/actuation 2 puffs inhalation Q6H PRN 30 days astaxanthin 12 mg PO DAILY cetirizine (Zyrtec) 10 mg PO DAILY coenzyme Q10 100 mg PO DAILY evening primrose oil 500 mg PO DAILY lorazepam 0.5 mg PO TID PRN 30 days montelukast 10 mg PO DAILY 90 days norgestimate-ethinyl estradiol 0.18/0.215/0.25 mg-35 mcg (28) (Tri-Sprintec (28)) 1 tab PO DAILY turmeric root extract 2,250 mg PO DAILY Tobacco use date assessed: 06/21/23 Dental Screening Dental Screen Date: 06/21/23 HPI hyperlipidemia, allergic rhinitis HPI Details Patient comes in today for her follow up visit States that she feels okay She was experiencing some occasional lightheadedness a few weeks ago that she thinks were from her sinuses - states that her symptoms gradually cleared up and have not recurred since she started using her nasal spray and took her Montelukast everyday lately She denies any headaches Denies any chest pains, no increased SOB No nausea/vomiting, no abdominal pain No change in bowel habits noted Needs a couple of her Rx refilled She had her follow up labs done last week - to discuss her results She would also like to get her flu shot today [facility] Medical History Pure hypercholesterolemia Migraine Obesity (BMI 30-39.9) Anxiety Seasonal allergic rhinitis due to pollen Positive SARAH (antinuclear antibody) Surgical History History of foot surgery Family History Father Stomach cancer Mother Diabetes Hypertension CVD (cardiovascular disease) Brother Healthy adult Sister Healthy adult Daughter No problems noted. Social History Housing: House Alcohol intake: current Alcohol intake frequency: holidays/special occasions only Alcohol type: wine Patient Tobacco Use Status: Never used Tobacco e-Cigarette/Vaping Use: Never Used Second Hand Smoke Exposure: Yes service: No Current occupational status: employed Current occupational exposures/hazards: No Cognitive needs: No Hearing needs: No Vision needs: Yes (glasses) Questionnaire Thrive Questionnaire Date Thrive assessed: 06/21/23 THRIVE Score: 0 AUDIT C Alcohol Use Questionnaire (AUDIT-C) 2. How many drinks containing alcohol do you have on a typical day when you are drinking?: 1 or 2 3. How often do you have six or more drinks on one occasion?: Never Total Score: 0 AARON-7 AMB Questionnaire AARON-7 Date AARON - 7 assessed: 06/21/23 Source: Developed by Drs. Luis Regalado, Yani Trinidad, Saurabh Urena and colleagues, with an educational howie from [employer]. Review of Systems Const Denies chills, Denies fatigue, Denies fever(s) and Denies headache(s) ENT Denies dysphagia, Denies dizziness, Denies otalgia, Denies headache(s), Denies nasal congestion (better lately), Denies neck pain, Denies odynophagia, Denies sinus pain and Denies sore throat Card Denies chest pain, Denies palpitations and Denies dyspnea Resp Denies chest congestion, Denies cough and Denies dyspnea GI Denies abdominal pain, Denies constipation, Denies dysphagia, Denies heartburn, Denies diarrhea, Denies nausea, Denies odynophagia and Denies vomiting Denies difficulty voiding, Denies nocturia, Denies dysuria and Denies urinary urgency Musc Denies back pain and Denies neck pain Skin/Breast Denies rash Neuro Denies dizziness and Denies headache(s) Endo Denies fatigue and Denies palpitations Physical exam (Primary Care) Vital Signs: Last Vital Signs Pulse 74 02/11/24 13:30 BP 106/70 02/11/24 13:30 Pulse Ox 98 02/11/24 13:30 Oxygen Delivery Method Room Air 02/11/24 13:30 BMI result Body Mass Index 32.4 Tobacco/Smoking Status: Tobacco use Status Tobacco use date assessed 06/21/23 02/11/24 13:21 Patient Tobacco Use Status Never used Tobacco 02/11/24 13:21 e-Cigarette/Vaping Use Never Used 02/11/24 13:21 Thrive Assessment: Date of Thrive Assessment Date Thrive assessed 06/21/23 02/11/24 13:21 Const General: no acute distress and alert HENMT Ears: TM's normal bilaterally and EAC's normal Throat: Yes posterior oropharynx normal and Yes tonsils normal (no TP congestion) Neck Neck: Yes no lymphadenopathy and Yes supple Thyroid: Thyroid normal Resp Auscultation: not clear to auscultation bilaterally, no rales and no wheezes Cardio Rate: regular rate Rhythm: regular rhythm Heart sounds: no murmurs GI Palpation (GI): Soft to palpation and nontender Auscultation: normal bowel sounds General: Yes no CVA tenderness Back/Spine/Pelvis Back: no CVA tenderness Thoracic/Lumbar Spine: No lumbar spinal tenderness Skin Rashes: no rashes Extrem General: Yes no clubbing, cyanosis or edema Office Procedures Flu Questionnaire Does the patient have a severe egg allergy?: No Does the patient have severe life threatening allergies?: No Does the patient have a fever or illness today?: No Has the patient ever had Guillain-[place] Syndrome?: No Has the patient ever had any past reaction to a flu shot?: No Immunizations Fluarix Triv [id number] (PF) 45 mcg (15 mcg x 3)/0.5 mL IM syringe Performing Provider: Que Higgins MD [facility] Administered by: JAGJIT Barfield on 02/11/24 13:32 Dose Route Admin Location Dispensed Lot Number Expiration Date [facility] Chief Wheelage Clerk 0.5 mL IM Right Deltoid 0.5 mL [id number] 09/18/24 10651-989-09 [email or web address] VIS Given Date VIS Provided VIS Publication Date 02/11/24 Single Vaccine 20 Eligibility Eligibility Date Funding Source Not [facility] Eligible 02/11/24 Private Results Reviewed Results Reviewed: Laboratory Tests 02/05/24 07:19 Sodium 139 Potassium 4.1 Creatinine 0.82 Estimated GFR > 60 Fasting Glucose 96 Calcium 9.3 AST 22 ALT 22 Triglycerides 126 Cholesterol 231 H LDL Cholesterol, Calc 150 H HDL Cholesterol 56 Coding Level of Care Code Est Pt Level 4 (90646) Diagnoses Pure hypercholesterolemia E78.00 Intermittent palpitations R00.2 Seasonal allergic rhinitis due to pollen J30.1 Positive SARAH (antinuclear antibody) R76.8 Anxiety F41.9 Obesity (BMI 30-39.9) E66.9 Assessment & Plan Assessment & Plan (1) Pure hypercholesterolemia: Code(s): E78.00 - Pure hypercholesterolemia, unspecified Category: Medical Plan: Results of her labs done last week reviewed and discussed with patient sSe is advised that her cholesterol levels are still elevated and not much different from her previous numbers - her LDL cholesterol is still at 150 mg/dl (should be at least <130 mg/dl or ideally <100 mg/dl) Reinforced low cholesterol diet Will have patient recheck her labs and fasting lipids in 4 months for follow up (2) Intermittent palpitations: Code(s): R00.2 - Palpitations Category: Medical Plan: States that her symptoms (palpitations) now occur very rarely Holter monitor and echocardiogram done back in June 2021 all came out unrevealing/normal (3) Seasonal allergic rhinitis due to pollen: Code(s): J30.1 - Allergic rhinitis due to pollen Category: Medical Plan: Continue Montelukast 10 mg QD, Cetirizine 10 mg QD PRN and Rhinocort Allergy Suspension 32 mcg/act 1 to 2 sprays into each nostril BID PRN (4) Positive SARAH (antinuclear antibody): Comment: has been tested for lupus - NEGATIVE Code(s): R76.8 - Other specified abnormal immunological findings in serum Category: Medical Plan: Her SARAH came back positive on her labs done at [facility] and [facility] a couple of years ago and again here at [facility] last year (2022) but her double stranded anti-DNA Ab came back negative, which rules out lupus This was rechecked by rheumatology a few months ago, which again came back negative and she has been advised by rheumatology that her joint symptoms are most likely due to tendinitis and she has no evidence of an inflammatory joint disease Follow up with rheumatology as scheduled or as needed (5) Anxiety: Code(s): F41.9 - Anxiety disorder, unspecified Category: Medical Plan: Continue Citalopram 10 mg QD and Lorazepam 0.5 mg TID PRN - feels that she is doing well on her current Rx (6) Obesity (BMI 30-39.9): Code(s): E66.9 - Obesity, unspecified Category: Medical Plan: Reinforced diet/exercise as tolerated/lose weight Plan As requested, flu vaccine given to patient today To return in 4 months for her next annual physical examination Orders: Orders Influenza [id number] Immunization 02/11/24 Z23 - Encounter for immunization Vitamin D 25-OH Total 4 Months E55.9 - Vitamin D deficiency, unspecified, Z00.00 - Encounter for general adult medical examination without abnormal findings Complete Blood Count Auto Diff 4 Months D64.9 - Anemia, unspecified, Z00.00 - Encounter for general adult medical examination without abnormal findings Comprehensive [place]. Panel Fast 4 Months E78.00 - Pure hypercholesterolemia, unspecified, Z00.00 - Encounter for general adult medical examination without abnormal findings Lipid Panel 4 Months E78.00 - Pure hypercholesterolemia, unspecified, Z00.00 - Encounter for general adult medical examination without abnormal findings TSH reflex Free T4 4 Months E78.00 - Pure hypercholesterolemia, unspecified, Z00.00 - Encounter for general adult medical examination without abnormal findings UA CC w/rflx Micro + Cult 4 Months R30.0 - Dysuria, Z00.00 - Encounter for general adult medical examination without abnormal findings Medications: Refilled albuterol sulfate 90 mcg/actuation 2 puffs inhalation Q6H PRN 8.5 grams 2RF shortness of breath or wheezing 30 days montelukast 1 tablet Orally Once a day 10 mg PO DAILY 90 tabs 3RF 90 days
[2024-02-11 13:30] VITALS: BP 106/70; PULSE 74; O2SAT 98; BMI 32.4
== END 2024-02-11 13:48 | disposition home or self-care (01) ==
PROVIDERS: PCP Internal Medicine; Visit Provider Internal Medicine
DX: E78.00 Pure hypercholesterolemia, unspecified (principal); R00.2 Palpitations; E66.9 Obesity, unspecified; Z68.32 Body mass index [BMI] 32.0-32.9, adult; J30.1 Allergic rhinitis due to pollen; R76.8 Other specified abnormal immunological findings in serum; F41.9 Anxiety disorder, unspecified

== ENCOUNTER → 2024-02-11 13:01 | Outpatient (BNVA) | payer BC, SELFPAY | PROVIDERS: PCP Internal Medicine; Visit Provider Internal Medicine | DX: E78.00 Pure hypercholesterolemia, unspecified (principal); R00.2 Palpitations; J30.1 Allergic rhinitis due to pollen; R76.8 Other specified abnormal immunological findings in serum; F41.9 Anxiety disorder, unspecified; E66.9 Obesity, unspecified; Z68.32 Body mass index [BMI] 32.0-32.9, adult; Z79.899 Other long term (current) drug therapy; Z23 Encounter for immunization | CPT/HCPCS: 90471; 90656 ==

== ENCOUNTER 2024-06-16 08:28 | Outpatient (AMB) | payer BC, SELFPAY ==
[2024-06-16 09:05] VITALS: BP 118/76; PULSE 89; O2SAT 99; BMI 39.1
--- NOTE | 2024-06-16 09:05 | A.OFFPC_ITS ---
Vital Signs 06/16/24 09:05 Height 5 ft Weight 200 lb BMI 39.1 BP 118/76 Blood Pressure Location Lt brachial Position Sitting Pulse 89 Pulse Source Pulse Oximeter Pulse Oximetry (%) 99 Oxygen Delivery Method Room Air Intake Visit Reasons: Annual Exam Master In Chancery Required: No Accompanied by: Self / Same As Patient Allergies oxymetazoline [From Afrin (oxymetazoline)] Adverse Reaction (Mild, Verified 06/16/24 09:50) Swelling Medication List - Last Reconciled 06/16/24 by Que Higgins MD albuterol sulfate 90 mcg/actuation 2 puffs inhalation Q6H PRN 30 days astaxanthin 12 mg PO DAILY cetirizine (Zyrtec) 10 mg PO DAILY coenzyme Q10 100 mg PO DAILY evening primrose oil 500 mg PO DAILY lorazepam 0.5 mg PO TID PRN 30 days montelukast 10 mg PO DAILY 90 days norgestimate-ethinyl estradiol 0.18/0.215/0.25 mg-35 mcg (28) (Tri-Sprintec (28)) 1 tab PO DAILY turmeric root extract 2,250 mg PO DAILY Tobacco use date assessed: 06/16/24 Dental Screening Dental Screen Date: 06/16/24 Did you have a dental visit in the last 12 months?: Yes Did you have a dental problem in the last 6 months where you did not have access to dental care?: No Was dental information given to patient?: Patient has dentist HPI Annual Exam HPI Details Patient comes in today for her annual physical examination States that she has been experiencing increased nasal and sinus congestion for over a month now States that she initially thought that these were due to her spring allergies as the weather was starting to turn warmer at the time but feels that her symptoms have gotten a lot worse recently Relates that she has been experiencing recurrent pain over the left side of her face and over her left upper jaw for the past few days and that her left eye feels like it is swollen at times and has been tearing a lot lately She denies any fever or sore throat; denies any dizziness but relates (+) on and off headaches due to her current sinus infection Denies any chest pains, no increased SOB No nausea/vomiting, no abdominal pain No change in bowel habits noted She denies any acute urinary symptoms She reports also experiencing increasing anxiety and stress at work lately She stopped taking her Citalopram on her own over a year ago and is now wondering if she can or should go back on the medication due to her recent increasing anxiety She was not able to get her follow up labs done prior to her appointment today She was referred for her screening colonoscopy a couple of years ago but states that she could never get her appointment scheduled due to conflicts with her work schedule She last had her annual mammogram and gynecology exam at [facility] about 2 years ago [facility] Medical History Pure hypercholesterolemia Migraine Obesity (BMI 30-39.9) Anxiety Seasonal allergic rhinitis due to pollen Positive SARAH (antinuclear antibody) Surgical History History of foot surgery Family History Father Stomach cancer Mother Diabetes Hypertension CVD (cardiovascular disease) Brother Healthy adult Sister Healthy adult Daughter No problems noted. Social History Housing: House Alcohol intake: current Alcohol intake frequency: holidays/special occasions only Alcohol type: wine Patient Tobacco Use Status: Never used Tobacco e-Cigarette/Vaping Use: Never Used Second Hand Smoke Exposure: Yes service: No Current occupational status: employed Current occupational exposures/hazards: No Cognitive needs: No Hearing needs: No Vision needs: Yes (glasses) Questionnaire PHQ-9 Over the last 2 weeks, how often have you been bothered by any of the following problems? 1. Little interest or pleasure in doing things: not at all 2. Feeling down, depressed, or hopeless: not at all 3. Trouble falling or staying asleep, or sleeping too much: not at all 4. Feeling tired or having little energy: nearly every day 5. Poor appetite or overeating: nearly every day 6. Feeling bad about yourself - or that you are a failure or have let yourself or your family down: not at all 7. Trouble concentrating on things, such as reading the newspaper or watching television: not at all 8. Moving or speaking so slowly that other people could have noticed. Or the opposite - being so fidgety or restless that you have been moving around a lot more than usual: not at all 9. Thoughts that you would be better off or of hurting yourself in some way: not at all Total score: 6 Depression Screening Interpretation: Positive Depression Screening Follow-up: Declines treatment (denies feeling depressed) Depression Screening Done: Yes 71887 - PHQ-9 Billing: Yes Source: Developed by Drs. Luis Regalado, Yani Trinidad, Saurabh Urena and colleagues, with an educational howie from [employer]. Thrive Questionnaire Date Thrive assessed: 06/16/24 I am a: Patient What is your living situation today?: I have a steady place to live Within the past 12 months, did the food you bought not last and you didn't have the money to get more?: Never true Within the past 12 months, did you worry whether your food would run out before you got money to buy more?: Never true Do you have trouble paying for medicines?: No Do you have trouble getting transportation to medical appointments?: No Do you have trouble paying your heating and electricity bill?: No Do you have trouble taking care of your child, family member or friend?: No Do you have trouble with day-to-day activities such as bathing, preparing meals, shopping, managing finances, etc.?: No Are you currently unemployed and looking for a job?: No Are you interested in more education?: No Please select the resources that you would like help with: None Currently or been in a relationship where the following occur: I choose not to answer THRIVE Score: 0 AUDIT C Alcohol Use Questionnaire (AUDIT-C) 1. How often do you have a drink containing alcohol?: Monthly or less 2. How many drinks containing alcohol do you have on a typical day when you are drinking?: 1 or 2 3. How often do you have six or more drinks on one occasion?: Never Total Score: 1 Score Reviewed/Action Taken: Yes AARON-7 AMB Questionnaire AARON-7 Date AARON - 7 assessed: 06/16/24 Feeling nervous, anxious, or on edge: 3 = Nearly every day Not being able to stop or control worryin = More than half the days Worrying too much about different things: 2 = More than half the days Trouble relaxin = More than half the days Being so restless that it is hard to sit still: 0 = Not at all Becoming easily annoyed or irritable: 0 = Not at all Feeling afraid as if something awful might happen: 2 = More than half the days Total AARON-7 score (0-4 normal; 5-9 mild; 10-14 moderate; 15-21 severe): 11 Source: Developed by Drs. Luis Regalado, Yani Trinidad, Saurabh Urena and colleagues, with an educational howie from [employer]. Review of Systems Const Denies chills, Reports fatigue, Denies fever(s), Reports headache(s) (on and off) and Denies malaise Eyes Details: left eye feels swollen at times due to her sinus/nasal congestion Denies blurry vision, Denies change in vision, Denies irritation and Denies itchy eyes ENT Reports as per HPI, Denies dysphagia, Denies dizziness, Denies otalgia, Reports headache(s) (on and off), Reports nasal congestion (recurrent), Denies neck pain, Denies odynophagia, Reports sinus pain (on the left side) and Denies sore throat Card Denies chest pain, Denies rapid heart rate, Denies irregular heart rhythm, Denies palpitations and Denies dyspnea Resp Denies chest congestion, Reports cough (on and off), Denies dyspnea and Denies wheezing GI Denies abdominal pain, Denies bloating, Denies constipation, Denies dysphagia, Denies heartburn, Denies diarrhea, Denies nausea, Denies odynophagia and Denies vomiting Denies hematuria, Denies urinary frequency, Denies dysuria, Denies urinary inc ontinence and Denies urinary urgency Musc Denies back pain, Denies arthralgias, Denies joint swelling, Denies muscle weakness and Denies neck pain Skin/Breast Denies breast pain, Denies breast mass, Denies change in pigmentation, Denies lesions, Denies rash and Denies unusual bruising Neuro Denies dizziness, Reports headache(s) (on and off) and Denies paresthesias Psych Reports anxiety (increasing lately) and Denies depression Endo Reports fatigue and Denies palpitations [place]/Lymph Denies easy bruising Aller/Immun Denies itchy eyes and Denies wheezing Physical exam (Primary Care) Vital Signs: Last Vital Signs Pulse 89 06/16/24 09:05 BP 118/76 06/16/24 09:05 Pulse Ox 99 06/16/24 09:05 Oxygen Delivery Method Room Air 06/16/24 09:05 BMI result Body Mass Index 39.1 Tobacco/Smoking Status: Tobacco use Status Tobacco use date assessed 06/16/24 06/16/24 09:07 Patient Tobacco Use Status Never used Tobacco 06/16/24 09:07 e-Cigarette/Vaping Use Never Used 06/16/24 09:07 PHQ-9: PHQ-9 Score PHQ-9: Total score 6 06/16/24 09:53 Depression Screening Interpretation: Positive Depression Screening Follow-up: Declines treatment (denies feeling depressed) Thrive Assessment: Date of Thrive Assessment Date Thrive assessed 06/16/24 06/16/24 09:07 Currently or been in a relationship where the following occur: I choose not to answer Const General: no acute distress, alert and awake Orientation/consciousness: patient oriented x3 HENMT Head: Yes normocephalic and Yes atraumatic Ears: external ears normal, TM's normal bilaterally and EAC's normal General nose exam: No nasal discharge present Face and sinus: Yes edema ((+) minimal edema and erythema of the entire left side of the face) and Yes sinus tenderness (mostly on the left side of the face) Teeth and gingiva: dentition normal Throat: Yes posterior oropharynx normal and Yes tonsils normal (no TP congestion) Eyes Eyelids: Yes eyelids normal Conjunctivae: conjunctivae normal Pupils: Equal, round and reactive pupils present EOM: EOMs intact bilaterally Neck Neck: Yes supple and No lymphadenopathy Thyroid: Thyroid normal Resp Auscultation: clear to auscultation bilaterally, no rales and no wheezes Cardio Rate: regular rate Rhythm: regular rhythm Heart sounds: no murmurs GI Palpation (GI): Soft to palpation, nontender and No hepatosplenomegaly present Auscultation: normal bowel sounds General: Yes no CVA tenderness Back/Spine/Pelvis Back: no CVA tenderness Thoracic/Lumbar Spine: thoracic and lumbar spine normal to inspection Skin Lesions: no lesions Rashes: no rashes Neuro General: patient oriented x3, moves all extremities, no focal motor deficits and CN's II-XI intact bilaterally Cranial nerves: Yes Equal, round and reactive pupils present Cognition (Neuro): normal cognition Gait exam (Neuro): Normal gait present Extrem General: Yes no clubbing, cyanosis or edema Coding Level of Care Code Est Pt Prev Care 40-64y(52731) Diagnoses Annual physical exam Z00.00 Pure hypercholesterolemia E78.00 Intermittent palpitations R00.2 Seasonal allergic rhinitis due to pollen J30.1 Acute non-recurrent frontal sinusitis J01.10 Sinusitis location: frontal Chronicity: acute Recurrence: non-recurrent Positive SARAH (antinuclear antibody) R76.8 Anxiety F41.9 Obesity (BMI 30-39.9) E66.9 Colon cancer screening Z12.11 Breast cancer screening by mammogram Z12.31 Additional Codes PHQ-9 - 00805 - PHQ-9 Billing: Yes ([id number]) Assessment & Plan Assessment & Plan (1) Annual physical exam: Code(s): Z00.00 - Encounter for general adult medical examination without abnormal findings Category: Medical Plan: She was not able to get her follow up labs done prior to her appointment today Will just have patient get these done BEFORE she returns for her next appointment in a few months so that we are reviewing and discussing lab results that are more current rather than old lab results She was referred for her screening colonoscopy a couple of years ago but states that she could never get her appointments scheduled due to conflicts with her work schedule She last had her annual mammogram and gynecology exam at 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 DONTE to get her yearly pap smear and gynecology exam updated (2) Pure hypercholesterolemia: Code(s): E78.00 - Pure hypercholesterolemia, unspecified Category: Medical Plan: She was not able to get her follow up labs done prior to her appointment today Her cholesterol levels were still elevated and not much different from her previous numbers when they were last checked in January 2024 - her LDL cholesterol was still at 150 mg/dl (should be at least <130 mg/dl or ideally <100 mg/dl) Reinforced low cholesterol diet Will have patient recheck her labs and fasting lipids again in 4 months for follow up - will just have her use her current orders (updated) for her next lab draw (3) Intermittent palpitations: Code(s): R00.2 - Palpitations Category: Medical Plan: States that her symptoms (palpitations) occur very rarely nowadays Holter monitor and echocardiogram done back in June 2021 all came out unrevealing/normal (4) Seasonal allergic rhinitis due to pollen: Code(s): J30.1 - Allergic rhinitis due to pollen Category: Medical Plan: Continue Montelukast 10 mg QD, Cetirizine 10 mg QD PRN and Rhinocort Allergy Suspension 32 mcg/act 1 to 2 sprays into each nostril BID PRN (5) Sinusitis: Comment: mostly left-sided Code(s): J32.9 - Chronic sinusitis, unspecified Category: Medical Qualifiers: Sinusitis location: frontal Chronicity: acute Recurrence: non- recurrent Qualified Code(s): J01.10 - Acute frontal sinusitis, unspecified Plan: Will start patient empirically on Augmentin 875 mg BID x 10 days (6) Positive SARAH (antinuclear antibody): Comment: has been tested for lupus - NEGATIVE Code(s): R76.8 - Other specified abnormal immunological findings in serum Category: Medical Plan: Her SARAH came back positive on her labs done at [facility] and [facility] a few years ago and again here at [facility] in 2022 but her double stranded anti-DNA Ab came back negative, which rules out lupus This was rechecked by rheumatology last year and again came back negative; she has been advised by rheumatology that her joint symptoms are most likely due to tendinitis and that she has no evidence of an inflammatory joint disease Follow up with rheumatology as scheduled or as needed (7) Anxiety: Code(s): F41.9 - Anxiety disorder, unspecified Category: Medical Plan: Continue Lorazepam 0.5 mg TID PRN States that she stopped taking her Citalopram about a year ago as she felt that the medication was causing her to have an increased appetite at the time but with her increasing anxiety lately, would like to try going back on the Rx Will go ahead and start her again on Citalopram 20 mg QD (8) Obesity (BMI 30-39.9): Code(s): E66.9 - Obesity, unspecified Category: Medical Plan: Reinforced diet/exercise as tolerated/lose weight (9) Colon cancer screening: Code(s): Z12.11 - Encounter for screening for malignant neoplasm of colon Category: Medical Plan: Patient was referred for her screening colonoscopy a couple of years ago but states that she could never get her appointment scheduled due to conflicts with her work schedule Have advised her of the option of Cologuard screening, which is almost as good accuracy-pruett compared to a regular colonoscopy and if this comes back negative, then she does not have to worry about getting a colonoscopy done for the next 2 to 3 years but patient states that she prefers to have a regular colonoscopy done and will just try to work out her own schedule to get this done Per request, will refer her again to GI for her screening colonoscopy (10) Breast cancer screening by mammogram: Code(s): Z12.31 - Encounter for screening mammogram for malignant neoplasm of breast Category: Medical Plan: Per request, will send her to get her annual mammogram updated at [facility] Plan Follow up in 4 months Orders: Orders MM tomosynthesis screening BI Today Z12.31 - Encounter for screening mammogram for malignant neoplasm of breast Referrals Gastroenterology Referral Z12.11 - Encounter for screening for malignant neoplasm of colon Medications: New amoxicillin-pot clavulanate 875-125 mg 1 tab PO BID 10 days 20 tabs 0RF Refilled citalopram 20 mg PO DAILY 90 days 90 tabs 1RF
== END 2024-06-16 10:11 | disposition home or self-care (01) ==
LOC: HO.HMCH 08:29
PROVIDERS: PCP Internal Medicine; Visit Provider Internal Medicine
DX: Z00.00 Encounter for general adult medical examination without abnormal findings (principal); E78.00 Pure hypercholesterolemia, unspecified; E66.9 Obesity, unspecified; Z68.39 Body mass index [BMI] 39.0-39.9, adult; R00.2 Palpitations; J30.1 Allergic rhinitis due to pollen; J01.10 Acute frontal sinusitis, unspecified; R76.8 Other specified abnormal immunological findings in serum; F41.9 Anxiety disorder, unspecified; Z12.11 Encounter for screening for malignant neoplasm of colon; Z12.31 Encounter for screening mammogram for malignant neoplasm of breast

== ENCOUNTER → 2024-06-16 08:28 | Outpatient (BNVA) | payer BC, SELFPAY | PROVIDERS: PCP Internal Medicine; Visit Provider Internal Medicine | DX: Z00.00 Encounter for general adult medical examination without abnormal findings (principal); E78.00 Pure hypercholesterolemia, unspecified; R00.2 Palpitations; J30.1 Allergic rhinitis due to pollen; J01.10 Acute frontal sinusitis, unspecified; R76.8 Other specified abnormal immunological findings in serum; F41.9 Anxiety disorder, unspecified; E66.9 Obesity, unspecified; Z68.39 Body mass index [BMI] 39.0-39.9, adult | CPT/HCPCS: 96127 ==

== ENCOUNTER 2024-07-29 06:58 | Outpatient (REF) | payer BC, SELFPAY ==
[2024-07-31 21:49] LABS: Lyme Abs Screen <0.90 index
== END 2024-07-29 06:59 | disposition home or self-care (01) ==
LOC: HO.LAB 06:58
PROVIDERS: PCP Internal Medicine; Visit Provider Internal Medicine
DX: M25.50 Pain in unspecified joint (principal); T14.8XXA Other injury of unspecified body region, initial encounter; W57.XXXA Bitten or stung by nonvenomous insect and other nonvenomous arthropods, initial encounter
CPT/HCPCS: 36415; 86617; 86618

== ENCOUNTER 2024-11-17 08:25 | Outpatient (AMB) | payer BC, SELFPAY ==
--- NOTE | 2024-11-17 08:27 | A.OFFVIS_ITS ---
Vital Signs 11/17/24 08:34 Height 5 ft 4 in Weight 200 lb BMI 34.3 BP 110/64 Blood Pressure Location Rt brachial Position Sitting Pulse 80 Pulse Source Pulse Oximeter Pulse Oximetry (%) 99 Oxygen Delivery Method Room Air Intake Visit Reasons: [place] screening Intake Note: New pt for initial colo screening. FMHx stomach cancer. CC:C.O. intermittent GERD w/o any tx at this time. Pt states that she does tend to adjust her diet to manage her sx which does provide some positive impact. Pt does take occasional tums but no Rx for GI sx at this time. Cylinder Loader Required: No Accompanied by: Self / Same As Patient Allergies oxymetazoline (From Afrin (oxymetazoline)) Adverse Reaction (Mild, Verified 11/17/24 08:27) Swelling HPI HPI [place] screening: Details: 49 year old? female with past medical history of migraine, hypercholesteremia, arthralgia, anxiety, obesity, seasonal rhinitis is here today for pre colonoscopy screening.? Patient was sent to us by her PCP.? This is her first colonoscopy screening.? Patient reports frequent acid reflux and epigastric pain depending on what she eats, mostly with fried or sweet food. Denies any personal or family history of gastrointestinal disease, colon polyps, or CRC.? Denies history of difficulty with sedation or anesthesia in the past.? Negative for history of sleep apnea.? Denies any history of cardiac, renal, pulmonary, or hepatic disease.?? No history of infectious? diseases like hepatitis A, B, C, HIV or tuberculosis.? Patient is not on any anticoagulation [facility] Medical History (Updated 11/17/24 @ 08:49 by Kim Grimm [facility]) GERD (gastroesophageal reflux disease) Pure hypercholesterolemia Migraine Obesity (BMI 30-39.9) Anxiety Seasonal allergic rhinitis due to pollen Positive SARAH (antinuclear antibody) Surgical History History of foot surgery Family History Father Stomach cancer Mother Diabetes Hypertension CVD (cardiovascular disease) Brother Healthy adult Sister Healthy adult Daughter No problems noted. Social History Housing: House Alcohol intake: current Alcohol intake frequency: holidays/special occasions only Alcohol type: wine Patient Tobacco Use Status: Never used Tobacco e-Cigarette/Vaping Use: Never Used Second Hand Smoke Exposure: Yes service: No Current occupational status: employed Current occupational exposures/hazards: No Cognitive needs: No Hearing needs: No Vision needs: Yes (glasses) Review of Systems Const Denies weight gain and Denies weight loss ENT Reports no additional complaints, Denies dysphagia and Denies odynophagia Card Reports no additional complaints Resp Reports no additional complaints GI Denies abdominal pain, Denies belching, Denies melena, Denies bloating, Denies change in bowel habits, Denies dysphagia, Denies excessive flatus, Denies dyspepsia, Reports heartburn, Denies diarrhea, Denies loose stools, Denies nausea, Denies odynophagia and Denies vomiting Reports no additional complaints Musc Reports no additional complaints Neuro Reports no additional complaints Psych Reports no additional complaints Endo Reports no additional complaints Physical Exam Vital Signs: Last Vital Signs Pulse 80 11/17/24 08:34 BP 110/64 11/17/24 08:34 Pulse Ox 99 11/17/24 08:34 Oxygen Delivery Method Room Air 11/17/24 08:34 BMI result Body Mass Index 34.3 Const General: healthy appearing and no acute distress Nutritional Appearance: obese Orientation/consciousness: patient oriented x3 Resp Effort & Inspection: normal respiratory effort, able to speak in complete sentences, no tracheal deviation and symmetric chest movement Auscultation: clear to auscultation bilaterally Cardio Rate: regular rate GI Inspection: Yes normal to inspection, No distended and Yes obesity Palpation (GI): Soft to palpation, not firm, nontender and No hepatosplenomegaly present Auscultation: normal bowel sounds General: Yes no CVA tenderness Back/Spine/Pelvis Back: no CVA tenderness Skin General skin exam: elasticity normal, turgor normal and dry skin Neuro General: patient oriented x3 Psych Appearance: grossly normal Mental Status: mental status grossly normal Assessment & Plan Assessment & Plan (1) Colon cancer screening: Code(s): Z12.11 - Encounter for screening for malignant neoplasm of colon Category: Medical (2) GERD (gastroesophageal reflux disease): Code(s): K21.9 - Gastro-esophageal reflux disease without esophagitis Category: Medical Qualifiers: Esophagitis presence: esophagitis presence not specified Qualified Code(s): K21.9 - Gastro-esophageal reflux disease without esophagitis (3) Postprandial epigastric pain: Code(s): R10.13 - Epigastric pain Plan Patient denies any cardiac or respiratory symptoms.? Patient reports acid reflux. Discussed with patient avoiding dietary triggers and late night snacking. Staying upright for minimum 3 hours after meals discussed with patient. Patient will be sent for upper endoscopy to rule out gastritis, esophagitis, duodenitis, Morton's. Patient will start omeprazole 20 mg daily. Denies any issues with anesthesia in the past.? Denies any history of sleep apnea.? No history infectious diseases in the past or present.? Not on any anticoagulation therapy.? No family or personal history of colon cancer or polyps.? Patient denies melena, hematochezia, unintentional weight loss or ribbon like stools.? Discussed at length the pre-procedure,? prep, diet & medications as well as what to expect prior, during and after the procedure.?? Stressed the importance of good bowel prep.? Recommended the use of Vaseline or Calmoseptine OTC & baby wipes with bowel movements to promote comfort.? ?Patient verbalizes understanding and agrees to plan of care.? She was given the opportunity to ask questions and all questions answered.? We will see her after the procedure.? Medications: New bisacodyl (Dulcolax (bisacodyl)) take 4 tabs at noon the day before your colonoscopy 20 mg (4 x 5 mg) PO ONCE 4 tabs 0RF constipation 1 day Z12.11 - Encounter for screening for malignant neoplasm of colon polyethylene glycol 3350 (Miralax) As directed by gastroenterology department at [facility] 238 grams PO ONCE 238 grams 0RF Z12.11 - Encounter for screening for malignant neoplasm of colon omeprazole 20 mg PO DAILY 90 caps 2RF K21.9 - Gastro-esophageal reflux disease without esophagitis Coding Level of Care Code New Pt Level 3 (28067) Complex EM visit Add On G2211 Diagnoses Colon cancer screening Z12.11 Gastroesophageal reflux disease, unspecified whether esophagitis present K21.9 Esophagitis presence: esophagitis presence not specified Postprandial epigastric pain R10.13 Time Spent (min) 40 Comment 30 minutes spent with patient and additional 10 minutes spent reviewing his records
[2024-11-17 08:34] VITALS: BP 110/64; PULSE 80; O2SAT 99; BMI 34.3
--- OUTSIDE RECORDS SUMMARY | 2024-11-17 09:11 | XMS_ITS | Clinical Summary ---
Author Organization [facility] Address [address] [place] [address] Care Team Providers Care Painter Supervisor Name Role Phone Pcp, No Primary Care Provider Unavailabl e Allergies Active Allergy Reactions Criticality Noted Date Comments Oxymetazoline Swelling Medium 08/09/2019 Sulfa Antibiotics Shortness Of Breath Medium 0 ? Medications cetirizine (ZyrTEC) 10 MG tablet Take 10 mg by mouth daily. Active montelukast (SINGULAIR) 10 MG tablet Take 10 mg by mouth. Active norethindrone-e thinyl estradiol (MICROGESTIN 04/10) 1-20 MG-MCG per tablet Take 1 tablet by mouth daily. Active albuterol (PROVENTIL HFA; VENTOLIN HFA) 108 (90 Base) MCG/ACT inhaler INHALE 2 PUFFS BY MOUTH EVERY 6 HOURS NEEDED FOR SHORTNESS OF BREATH FOR WHEEZING 4 Active Active Problems No known active problems Social History Tobacco Use Types Packs/Day Years Used Date Smoking Tobacco: Never Assessed Comments Unknown Sex and Gender Information Value Date Recorded Sex Assigned at Not on file Legal Sex Female 6:20 PM EST Gender Identity Not on file Sexual Orientation Not on file Last Filed Vital Signs Vital Sign Reading Time Taken Comments Blood Pressure 117/66 03/13/2024 1:02 PM EST Pulse 78 03/13/2024 1:02 PM EST Temperature 37.2 C (99 F) 03/13/2024 1:02 PM EST Respiratory Rate 18 03/13/2024 1:02 PM EST Oxygen Saturation 99% 03/13/2024 1:02 PM EST Inhaled Oxygen Concentration - - Weight - - Height - - Body Mass Index - - Plan of Treatment Health Maintenance Due Date Last Done Comments Hepatitis C Virus Screening 1976 HIV Screening 1989 DTaP/Tdap/Td Vaccines (1 - Tdap) 10/08/1995 Hepatitis B Vaccines (1 of 3 - 19+ 3-dose series) 10/08/1995 Pap Smear (Ages 21-65) 1997 Mammogram 2016 Colonoscopy 2021 COVID-19 Vaccine (1 - 2023-2 5 season) 2023 Influenza Vaccine 10/20/2024 Pneumococcal Vaccine: Pediat bonine (0-5 Years) and At-Risk Patients (6 to 49 Years) Aged Out No longer eligible b ased on patient's age to complete this topic Insurance [facility] Care Teams Painter Supervisor Relationship Specialty Start Date End Date Pcp, No PCP - General General Medicine 02/13/24
--- OUTSIDE RECORDS SUMMARY | 2024-11-17 09:11 | XMS_ITS | Encounter Summary ---
Author Organization [facility] Address [address] [place] [address] Care Team Providers Care Obgyn Hospitalist Physician Name Role Phone Pcp, No Primary Care Provider Unavailabl e Encounter Details Date Type Department Care Team (Late st Contact Info) Description 03/13/2024 Scanned Document [address] [facility] [place] [address] Provider, Generic Social History Tobacco Use Types Packs/Day Years Used Date Smoking Tobacco: Never Assessed Comments Unknown Sex and Gender Information Value Date Recorded Sex Assigned at Not on file Legal Sex Female 6:20 PM EST Gender Identity Not on file Sexual Orientation Not on file documented as of this encounter Plan of Treatment Not on file documented as of this encounter Visit Diagnoses Not on filedocumented in this encounter Care Teams Obgyn Hospitalist Physician Relationship Specialty Start Date End Date Pcp, No PCP - General General Medicine 02/13/24 documented as of this encounter
--- OUTSIDE RECORDS SUMMARY | 2024-11-17 09:11 | XMS_ITS | Encounter Summary ---
Author Organization [facility] Address [address] [place] [address] Care Team Providers Care Turner Machine Operator Name Role Phone Pcp, No Primary Care Provider Unavailabl e Encounter Details Date Type Department Care Team (Late st Contact Info) Description 03/13/2024 Scanned Document [address] [facility] [place] [address] Provider, Generic Social History Tobacco [...] on filedocumented in this encounter Care Teams Turner Machine Operator Relationship Specialty Start Date End Date Pcp, No PCP - General General Medicine 02/13/24 documented as of this encounter
--- OUTSIDE RECORDS SUMMARY | 2024-11-17 09:11 | XMS_ITS | Clinical Summary ---
Author Organization [facility] Address [address] [place] [address] Phone Care Team Providers Care Account Executive Software Sales Name Role Phone Que Higgins MD Primary Care Provider [phone] Allergies Active Allergy Reactions Criticality Noted Date Comments Oxymetazoline Swelling 08/09/2019 Sulfa (Sulfonamide Antibiotics) 07/20 ? Medications therapeutic multivitamin tablet Take 1 tablet by mouth daily. Active vit E/linoleic/gamole n/borage (BORAGE [id number] ACID ORAL)Indications: borage oil Take by mouth. Indications: borage oil Active norethindrone-eth inyl estradiol (MICROGESTIN 04/10) 1-0.02 mg per tablet Take 1 tablet by mouth daily. Active cetirizine (ZYRTEC) 10 MG tablet Take 10 mg by mouth daily. Active montelukast (SINGULAIR) 10 mg tablet Take 10 mg by mouth nightly at bedtime. Active Lactobacillus rhamnosus GG (CULTURELLE ORAL) Take by mouth. Active citalopram (CELEXA) 10 MG tablet TAKE 1 TABLET BY MOUTH ONCE DAILY IN THE MORNING 0 Active hydroxychloroquin e (PLAQUENIL) 200 mg tabletIndications :Other forms of systemic lupus erythematosus, unspecified organ involvement status Take 1 tab daily 7 days, if ok take 1 tab twice daily 60 tablet 11 0 Active Active Problems Problem Noted Date Diagnosed Date Bilateral hand numbness 08/24/2019 Assessment & Plan (08/26/2019 4:55 PM EDT): Use splint for extended activities and nighttime. Avoid prolonged, repetitive use. Utilize ergonomic principles at the workstation set up. Other forms of systemic lupus erythematosus 06/2019 Assessment & Plan (08/26/2019 4:51 PM EDT): She requested in person evaluation to understand better her current situation because she became very anxious that she may not be able to raise her 6-year-old daughter. I spent several minutes explaining to her that if the disease is detected early there is a good chance that with the treatment we may be able to get it under control and allow her close to normal lifestyle compared to her peers. She read pamphlet on Plaquenil-disease modifying antirheumatic medication (DMARD) that is known to reduce the rate of progression from early, undifferentiated immune mechanism disorder/unspecified connective tissue disease to defined systemic rheumatic disease and is interested in trying it. I reviewed with her most frequent side effects and the fact that it takes usually 3-4 months for a full effect. She is encouraged to arrange for ophthalmologic checkup within 12 months from starting Plaquenil. She was also provided with pamphlets on systemic lupus erythematosus that most frequently is associated with positive SARAH prepared by specialists from [employer] for additional resources. She is educated to monitor for any clinical changes such as increasing skin rashes, headaches, fevers, mucosal ulcerations, joint swelling, redness stiffness etc. Provided she has no other abnormalities I asked her to return in 2 months otherwise we will get in touch earlier as needed. She is educated on daily sun protection particularly during spring and summer months or while traveling to [facility] or [facility]. Sleep hygiene. Well-balanced nutritionally diet. Proper hydration. Follow age-appropriate screenings and preventive strategies. Avoid sick contacts and known allergens. Call if problems or questions. Anxiety 08/24/2019 Assessment & Plan (08/26/2019 4:54 PM EDT): Carefully continue Cymbalta as prescribed and optimize stress management strategies. Keep regular engagement in hobbies/favorite activities. SARAH positive 08/09/2019 Assessment & Plan (08/26/2019 4:53 PM EDT): I have explained to Ashlie that positive SARAH in itself does not make any diagnosis however may put her at an increased risk for developing 1 of the systemic rheumatic diseases associated with positive SARAH such as systemic lupus erythematosus, mixed connective tissue disease, Sjogren's syndrome, scleroderma, polymyositis, dermatomyositis, sarcoidosis etc. Based on review of her history, available data today I am not finding a lot of support to suspect any major systemic rheumatic diseases at this time. I have reassured her that all additional more specific tests that I have ordered on initial visit returned negative therefore her risk is lower comparing to someone of her age with positive SARAH and additional abnormalities. I spent several minutes reviewing with her that I am not able to approximate timing of possible disease onset. Assessment & Plan (08/09/2019 5:01 PM EDT): I have explained to Ashlie that positive SARAH in itself does not make any diagnosis however may put her at an increased risk for developing 1 of the systemic rheumatic diseases associated with positive SARAH such as systemic lupus erythematosus, mixed connective tissue disease, Sjogren's syndrome, scleroderma, polymyositis, dermatomyositis, sarcoidosis etc. Based on review of her history, available data today I am not finding a lot of support to suspect any major systemic rheumatic diseases at this time however due to high SARAH titer in her younger age I took the liberty of getting more specific tests for systemic lupus erythematosus, Sjogren's syndrome and scleroderma to make sure there are no additional immunologic abnormalities to address. Provided she has no other abnormalities detected I asked her to return in 6 months otherwise we will get in touch earlier as needed. She is educated on daily sun protection particularly during spring and summer months or while traveling to [facility] or [facility] [place]. Sleep hygiene. Well-balanced nutritionally diet. Proper hydration. Follow age-appropriate screenings and preventive strategies. Avoid sick contacts and known allergens. Call if problems or questions. Pain in both hands 08/09/2019 Assessment & Plan (08/09/2019 5:04 PM EDT): She had x-rays of her hands at [facility] in November 2018 but I did not receive report of it therefore she is asked to sign the medical records release for me to review it and keep in her chart in [facility]. Joint protection, energy conservation. Gentle, regular exercise routine. Avoid falls, injuries, overuse. She may benefit from topical cream such as Arnica, Biofreeze, Aspercreme versus medicated patches such as salonpas, icy hot patch 2-3 times daily and if necessary at bedtime x 3 weeks. Avoid aggravating activities such as twisting, opening jars. If needed consider formal OT. Call with questions or problems. Multiple allergies 08/09/2019 Assessment & Plan (08/09/2019 5:06 PM EDT): Since she reports only 2 years benefit after 5 years of getting allergy injections I suggested her to consider 2nd opinion allergy/immunology consult either in [place] or [place] if interested to explore other options. Sensitivity to sunlight 08/09/2019 Assessment & Plan (08/09/2019 5:02 PM EDT): I have explained the need for daily sun protection all year round and making sure not to get the sunburn that is described in literature sometimes triggering onset of major systemic rheumatic diseases such as systemic lupus erythematosus. Proper sun protection techniques reviewed and strongly encouraged. Gastroesophageal reflux disease without esophagi tis 08/09/2019 Assessment & Plan (08/26/2019 4:53 PM EDT): Avoid late, large, spicy meals. Keep headboard elevated at 45 angle for nighttime. Assessment & Plan (08/09/2019 3:39 PM EDT): Avoid late, large, spicy meals. Keep headboard elevated at 45 angle for nighttime. Family History Medical History Relation Comments Stomach cancer Father Cardiovascular disease Mother Diabetes mellitus Mother Hypertension Mother Relation Status Comments Brother Alive Father Mother Alive Sister Alive Social History Tobacco Use Types Packs/Day Years Used Date Smoking Tobacco: Never Smokeless Tobacco: Never Alcohol Use Standard Drinks/Week Comments Yes 0 (1 standard drink = 0.6 oz pur e alcohol) Education Answer Date Recorded Are you interested in more education? Not on marcella e 07/17/2022 Are you concerned about learning? Not on file 07/17/2022 No 07/17/2022 No 07/17/2022 Digital Access Answer Date Recorded No 08/15/2022 No 08/15/2022 Reliable internet access at home? Not on file 08/15/2022 Device with a working camera? Not on file Comments Unknown Sex and Gender Information Value Date Recorded Sex Assigned at Female 08/09/2019 1:24 PM EDT Legal Sex Female 1:18 PM EST Gender Identity Female 08/09/2019 1:24 PM EDT Sexual Orientation Straight 08/09/2019 1: 24 PM EDT Last Filed Vital Signs Vital Sign Reading Time Taken Comments Blood Pressure 120/64 08/24/2019 8:36 AM EDT Pulse - - Temperature - - Respiratory Rate - - Oxygen Saturation - - Inhaled Oxygen Concentration - - Weight 86.6 kg (191 lb) 08/24/2019 8:36 AM EDT Height 162.6 cm (5' 4 ) 08/24/2019 8:36 AM EDT Body Mass Index 32.79 08/24/2019 8:36 AM EDT Plan of Treatment Health Maintenance Due Date Last Done Comments Adult Td,Tdap Booster 1976 DEPRESSION SCREENING 1988 HEPATITIS C SCREENING 1994 HIV ONE-TIME SCREENING (18-6 5 YEARS) 1994 PAP SMEAR 1997 MAMMOGRAM 2016 COLOGUARD 2021 COLONOSCOPY 2021 COLORECTAL CANCER SCREENING 2021 FIT TEST 2021 FOBT 2021 SIGMOIDOSCOPY 2021 VIRTUAL COLONOSCOPY 2021 COVID-19 VACCINE (2 - 2023-2 5 season) 2023 08/07/2020 LIPID PANEL 05/15/2026 05/15/2021 SMOKING STATUS SCREENING (On ce After 26 Yrs) Completed 08/24/2019 HEPATITIS A VACCINES Aged Out No long er eligible based on patient's age to complete this topic HIB VACCINES Aged Out No longer eligi ble based on patient's age to complete this topic MENINGOCOCCAL VACCINES (ACWY) Aged Out No longer eligible based on patient's age to complete this topic MENINGOCOCCAL VACCINES (B) Aged Out N o longer eligible based on patient's age to complete this topic PNEUMOCOCCAL VACCINES (0-49 years) Aged Out No longer eligible based on patient's age to complete this topic Medical Devices Not on file Procedures Procedure Name Priority Date/Time Associated Diagnosis Comments LIPID PANEL Routine 05/15/2021 8:33 AM EST SARAH positive Pain in both hands Vitamin D deficiency disease Routine general medical examination at a health care facility from Last 3 Months or Most Recently Relevant to Health Maintenance Results * (ABNORMAL) Lipid panel (05/15/2021 8:33 AM EST) HDL 56 mg/dL [facility] Comment: Interpretation <40 mg/dL: Low HDL cholesterol (major risk factor for CHD) Greater than or equal to 60 mg/dL: High HDL cholesterol ( negative risk factor for CHD) HDL - cholesterol is affected by a number of factors, e.g. smoking, excerise, hormones, sex and age. CHOLESTEROL 217 0 - 240 mg/dL [facility] TRIGLYCERIDES 97 30 - 160 mg/dL [facility] LDL 142(H) 50 - 129 mg/dL [facility] Comment: LDL levels in terms of risk for coronary heart disease: <100 mg/dL: Optimal 100-129 mg/dL: Near or above optimal 130-159 mg/dL: Borderline high 160-189 mg/dL: High >190 mg/dL: Very High CARDIAC RISK RATIO 3.9 3.3 - 4.4 C [facility] Blood 05/15/2021 8:33 AM EST 05/15/2021 8:38 AM EST Que Higgins MD LAB BLOOD ORDERABLES Micheline bhatt Result [address] [address] from Last 3 Months or Most Recently Relevant to Health Maintenance Insurance [facility] FEDERAL [employer] FEDERAL [employer] Care Teams Account Executive Software Sales Relationship Specialty Start Date End Date Que Higgins MD [address] [place] [address] [place] [address] PCP - General Internal Medicine 04/07/19 Additional Source Comments The information contained in this document represents components of the legal health record. It is not the complete legal health record.[facility]
--- OUTSIDE RECORDS SUMMARY | 2024-11-17 09:11 | XMS_ITS ---
Author Name [facility] Organization Unknown History of Medication Use Medication Directions Dispensed Refills Start Date End Date Stat us montelukast (SINGULAIR) 10 MG tablet Take 10 mg by mouth. active Allergies Allergen Reaction Severity Comment Documented Date Source Statu s OXYMETAZOLINE SWELLING 08/09/2019 CCT active SULFA ANTIBIOTICS SHORTNESS OF BREATH ? 08/03/2019 [facility] active Problems Problem Status Onset Date Problem Type Date of Resoluti on Source Acute bacterial sinusitis active EncounterDiagnosisAct [facility] Encounters Encounter Type Encounter Reason Primary Diagnosis Location Date Ambulatory Other Other [employer] 03/13/2024 Care Team Organization Name Specialty Phone Email Start Date End [facility] te [facility] 03/17/2024 06/07/2024 [facility] 03/13/2024
== END 2024-11-17 10:09 | disposition home or self-care (01) ==
LOC: HO.HGI 08:26
PROVIDERS: PCP Internal Medicine; Visit Provider Nurse Practitioner Family
DX: Z01.818 Encounter for other preprocedural examination (principal); Z12.11 Encounter for screening for malignant neoplasm of colon; K21.9 Gastro-esophageal reflux disease without esophagitis; R10.13 Epigastric pain
CPT/HCPCS: S0285

== ENCOUNTER 2025-01-05 09:35 | Day surgery (SDC) | payer BC, SELFPAY ==
--- OUTSIDE RECORDS SUMMARY | 2024-12-25 08:26 | XMS_ITS | Clinical Summary ---
Author Organization [facility] Address [address] [place] [address] Care Team Providers Care Vamp Strap Ironer Name Role Phone Pcp, No Primary Care [...] (Ages 21-65) 1997 Mammogram 2016 Colonoscopy 2021 Influenza Vaccine 10/20/2024 COVID-19 Vaccine (1 - 2023-2 5 season) 2024 Pneumococcal Vaccine: Pediat bonnie (0-5 Years) and At-Risk Patients (6 to 49 Years) Aged Out No longer eligible b ased on patient's age to complete this topic Insurance [facility] Care Teams Vamp Strap Ironer Relationship Specialty Start Date End Date Pcp, No PCP - General General Medicine 02/13/24
--- OUTSIDE RECORDS SUMMARY | 2024-12-25 08:26 | XMS_ITS | Encounter Summary ---
Author Organization [facility] Address [address] [place] [address] Care Team Providers Care Clerk Name Role Phone Pcp, No Primary Care Provider Unavailabl e Encounter Details Date Type Department Care Team (Late st Contact Info) Description 03/13/2024 Scanned Document [address] [facility] [place] [address] Provider, Generic Social History Tobacco [...] on filedocumented in this encounter Care Teams Clerk Relationship Specialty Start Date End Date Pcp, No PCP - General General Medicine 02/13/24 documented as of this encounter
--- OUTSIDE RECORDS SUMMARY | 2024-12-25 08:26 | XMS_ITS | Encounter Summary ---
Author Organization [facility] Address [address] [place] [address] Care Team Providers Care Chartered Financial Analyst Name Role Phone Pcp, No Primary Care Provider Unavailabl e Encounter Details Date Type Department Care Team (Late st Contact Info) Description 03/13/2024 Scanned Document [address] [facility] [place] [address] Provider, Generic Social History Tobacco [...] on filedocumented in this encounter Care Teams Chartered Financial Analyst Relationship Specialty Start Date End Date Pcp, No PCP - General General Medicine 02/13/24 documented as of this encounter
--- OUTSIDE RECORDS SUMMARY | 2024-12-25 08:27 | XMS_ITS | Clinical Summary ---
Author Organization [facility] Address [address] [place] [phone] Phone Care Team Providers Care Information Security Risk Analyst Name Role Phone Que Higgins MD Primary Care Provider [phone] Allergies Active Allergy Reactions Criticality Noted Date Comments Oxymetazoline Swelling 08/09/2019 Sulfa (Sulfonamide Antibiotics) 07/20 ? Medications therapeutic multivitamin tablet Take 1 tablet by mouth daily. Active vit E/linoleic/gamole n/borage (BORAGE [id number] ACID ORAL)Indications: borage oil Take by mouth. [...] and summer months or while traveling to state mental [facility] or [facility]. Sleep hygiene. Well-balanced nutritionally diet. Proper [...] and summer months or while traveling to state mental health facility or [facility] [place]. Sleep hygiene. Well-balanced nutritionally diet. Proper hydration. Follow age-appropriate screenings and preventive strategies. Avoid sick contacts and known allergens. Call if problems or questions. Pain in both hands 08/09/2019 Assessment & Plan (08/09/2019 5:04 PM EDT): She had x-rays of her hands at [facility] in November 2018 but I did not receive report of it therefore she is asked to sign the medical records release for me to review it and keep in her chart in [facility]. Joint protection, energy conservation. Gentle, regular [...] consider 2nd opinion allergy/immunology consult either in [place] or [place] if interested to explore other options. Sensitivity [...] FOBT 2021 SIGMOIDOSCOPY 2021 VIRTUAL COLONOSCOPY 2021 INFLUENZA VACCINE (#1) 2024 COVID-19 VACCINE (2 - 2024-2 6 season) 2024 08/07/2020 LIPID PANEL 05/15/2026 05/15/2021 SMOKING STATUS [...] (05/15/2021 8:33 AM EST) HDL 56 mg/dL [facility] Comment: Interpretation <40 mg/dL: Low HDL cholesterol (major risk factor for CHD) Greater than or equal to 60 mg/dL: High HDL cholesterol ( negative risk factor for CHD) HDL - cholesterol is affected by a number of factors, e.g. smoking, excerise, hormones, sex and age. CHOLESTEROL 217 0 - 240 mg/dL [facility] TRIGLYCERIDES 97 30 - 160 mg/dL [facility] LDL 142(H) 50 - 129 mg/dL [facility] Comment: LDL levels in terms of risk for coronary heart disease: <100 mg/dL: Optimal 100-129 mg/dL: Near or above optimal 130-159 mg/dL: Borderline high 160-189 mg/dL: High >190 mg/dL: Very High CARDIAC RISK RATIO 3.9 3.3 - 4.4 C [facility] Blood 05/15/2021 8:33 AM EST 05/15/2021 8:38 AM EST us Que Higgins MD LAB BLOOD ORDERABLES Micheline bhatt Result [facility] [address], [place] [id number] from Last 3 Months or Most Recently Relevant to Health Maintenance Insurance [facility] FEDERAL [employer] [facility] [employer] [facility] [employer] [facility] [place] [address] [place] [address] [employer] FEDERAL Care Teams Information Security Risk Analyst Relationship Specialty Start Date End Date Que Higgins MD [address] [place] [address] [place] [address] PCP - General Internal Medicine 04/07/19 Additional Source Comments The information contained in this document represents components of the legal health record. It is not the complete legal health record.[facility]
--- NOTE | 2025-01-03 11:27 | P.CONAN_ITS ---
Documented by User: Rita Alaniz NP 01/03/25 11:28 HPI - Anesthesia Eval Consult details Narrative: 49 yr old female for Upper Endoscopy and Colonoscopy [facility] Active Problems Active Problems: All Active Problems GERD (gastroesophageal reflux disease) (Acute) Sinusitis (Acute) Breast cancer screening by mammogram (Acute) Pneumonia (Acute) Pure hypercholesterolemia (Acute) Fatigue (Acute) Low back pain (Acute) Wrist pain, chronic (Acute) Migraine (Acute) Dyspnea (Acute) Arthralgia (Acute) Colon cancer screening (Acute) Left-sided chest wall pain (Acute) Intermittent palpitations (Acute) Acute maxillary sinusitis (Acute) Obesity (BMI 30-39.9) (Acute) Anxiety (Acute) Seasonal allergic rhinitis due to pollen (Acute) Positive SARAH (antinuclear antibody) (Acute) Annual physical exam (Acute) Past Medical History Medical History (Updated 11/17/24 @ 08:49 by Kim Grimm, [facility]) GERD (gastroesophageal reflux disease) Pure hypercholesterolemia Migraine Obesity (BMI 30-39.9) Anxiety Seasonal allergic rhinitis due to pollen Positive SARAH (antinuclear antibody) Family History Family History Father Stomach cancer Mother Diabetes Hypertension CVD (cardiovascular disease) Brother Healthy adult Sister Healthy adult Daughter No problems noted. Surgical History Surgical History History of foot surgery Social History Social History Housing: House Alcohol intake: current Alcohol intake frequency: holidays/special occasions only Alcohol type: wine Patient Tobacco Use Status: Never used Tobacco e-Cigarette/Vaping Use: Never Used Second Hand Smoke Exposure: Yes Advance Directives: No Advance Directives Information Provided: Yes service: No Current occupational status: employed Current occupational exposures/hazards: No Cognitive needs: No Hearing needs: No Vision needs: Yes (glasses) Meds Allergies Allergy/AdvReac Type Severity Reaction Status Date / Time oxymetazoline (From Afrin AdvReac Mild Swelling Verified 11/17/24 08:27 (oxymetazoline)) Home Medications ?Medication ?Instructions ?Recorded ?Confirmed ?Last Taken ?Type cetirizine 10 mg tablet (Zyrtec) 10 mg PO DAILY 01/05/25 Unknown History Documented by User: Octavia Jordan MD 01/05/25 10:51 [facility] Past Medical History Medical History (Updated 11/17/24 @ 08:49 by Kim Grimm, [facility]) GERD (gastroesophageal reflux disease) Pure hypercholesterolemia Migraine Obesity (BMI 30-39.9) Anxiety Seasonal allergic rhinitis due to pollen Positive SARAH (antinuclear antibody) Family History Family History Father Stomach cancer Mother Diabetes Hypertension CVD (cardiovascular disease) Brother Healthy adult Sister Healthy adult Daughter No problems noted. Family history of problems with anesthesia: No Surgical History Surgical History History of foot surgery History of Problems with Anesthesia: No Social History Social History Housing: House Alcohol intake: current Alcohol intake frequency: holidays/special occasions only Alcohol type: wine Patient Tobacco Use Status: Never used Tobacco e-Cigarette/Vaping Use: Never Used Second Hand Smoke Exposure: Yes Advance Directives: No Advance Directives Information Provided: Yes service: No Current occupational status: employed Current occupational exposures/hazards: No Cognitive needs: No Hearing needs: No Vision needs: Yes (glasses) Meds Allergies Allergy/AdvReac Type Severity Reaction Status Date / Time oxymetazoline (From Afrin AdvReac Mild Swelling Verified 11/17/24 08:27 (oxymetazoline)) Home Medications ?Medication ?Instructions ?Recorded ?Confirmed ?Last Taken ?Type cetirizine 10 mg tablet (Zyrtec) 10 mg PO DAILY 01/05/25 Unknown History Exam Airway Mallampati Class: III (2 crowns bottom left) TM Dist: >3cm Neck ROM: Full Heart: rrr Lungs: cta Assessment and Plan Assessment Anesthesia Assessment: Anesthesia Plan Discussed and Chart Reviewed Final Anesthetic Review Family History of Problems with Anesthesia: No History of Problems with Anesthesia: No NPO: Yes ASA Class: II Final Preanesthetic Review: No Changes in Pt Med Stat, Meds/Allgs Chart Reviewed and Consent Obtained/Reviewed Patient Risk: Intermediate Procedure Risk: Intermediate Anesthetic Plan Anesthetic Plan: MAC: Disposition: Standard PACU
[2025-01-03 11:39] VITALS: BMI 34.3
[2025-01-05 10:15] VITALS: BP 127/69; PULSE 66; RESP 18; TEMP 36.1; O2SAT 100; BMI 33.7
[2025-01-05 10:27] LABS: UPreg QC Valid YES
[2025-01-05] MEDS: Lactated Ringers 1,000 ML 100 ML IVCONT (10:49)
--- NOTE | 2025-01-05 11:12 | MHC.SHP ---
Pre-Procedural Eval Section A - 24 Hr Update-Section A only Date of Service: 01/05/25 The patient is an INPATIENT: No Section B - Complete if H&P > 30 days Chief Complaint: Colon cancer screening, GERD Relevant Family History (Specify if Yes): Yes Relevant Social History: None Present Medications: see Short Stay Collaborative assessment Medical History: Significant History (GERD (gastroesophageal reflux disease) Pure hypercholesterolemia Migraine Obesity (BMI 30-39.9) Anxiety Seasonal allergic rhinitis due to pollen Positive SARAH (antinuclear antibody)) History of Previous Operations: Relevant previous surgery/procedure and date(s) (History of foot surgery) Allergies: Allergies Allergy/AdvReac Type Severity Reaction Status Date / Time oxymetazoline (From Afrin AdvReac Mild Swelling Verified 11/17/24 08:27 (oxymetazoline)) Review of Systems Sugical H&P ROS: Negative: Constitution, Cardiovascular and Respiratory and Yes, Specify: Gastrointestinal (GERD) Exam Surgical H&P Exam: Normal: Heart, Normal: Lungs, Normal: Extremities and Normal: Abdomen Plan Diagnosis/Plan: Unchanged I have reviewed the history and physical and performed a pertinent physical examination on my patient. No changes have occurred unless specified. Time Spent With Patient Time: Total time managing care of this patient today ____ minutes.
--- NOTE | 2025-01-05 12:22 | HO.OPN-COLON ---
Colonoscopy Operative Note Operative Note Date of Service: 01/05/25 Narrative: FLEXIBLE TRANSORAL UPPER GASTROINTESTINAL ENDOSCOPY WITH BIOPSIES AND COLONOSCOPY TILL CECUM WITH SNARE POLYPECTOMY, SUBMUCOSAL INJECTION AND HEMOCLIP PLACEMENT Pre-op diagnosis: Colon cancer screening, GERD Post-op diagnosis: Esophagitis, hiatal hernia, Gastritis, duodenitis Colon Polyps, Diverticulosis, hemorrhoids Endoscopist:? Magalie Shaw MD Anesthesia:?MAC UPPER ENDOSCOPY Consent: Indications for the procedure and potential complications of bleeding, perforation, reaction to medications and missed diagnosis were discussed with the patient and informed consent was obtained. Instrument: Olympus GIF H 190 mid size upper endoscope Monitoring: Vital signs and clinical assessment, continuous EKG monitoring, Pulse oximetry, Carbon Dioxide monitoring and blood pressure monitoring were done throughout the procedure. Procedure: The patient was placed in the left lateral decubitis position and pre-procedure medications were administered and a bite block was placed. The endoscope was inserted into the mouth and advanced under direct vision to the third part of duodenum. A careful inspection was made as the upper endoscope was withdrawn including a retroflexed examination of the proximal stomach; Findings and interventions are described below. Findings: Larynx: Normal Esophagus: GE junction at 35 cms, hiatal hernia 35 to 37 cms. A single 1 cms superficial healing erosion at the GE junction. No Morton's. Stomach: Moderate diffuse gastric erythema - biopsies were obtained from the gastric body and antrum. Grade 2 flap valve on retroflexed examination of the cardia. Duodenum: Normal bulb and descending duodenum Intervention: Biopsies as noted above COLONOSCOPY PROCEDURE NOTE Instrument: Olympus PCF H 190 L variable stiffness pediatric colonoscope Monitoring: Vital signs and clinical assessment, intermittent blood pressure monitoring, continuous EKG monitoring, Pulse oximetry and Carbon Dioxide monitoring were done throughout the procedure. Please see anesthesia flowsheet. Colon withdrawl time was 30 minutes. Procedure: The patient was placed in the left lateral decubitis position and pre-procedure medications were administered. After a digital rectal examination of the ano-rectum, the video colonoscope was inserted into the rectum and advanced through the colon to the cecum. The colonoscope was slowly withdrawn in a retrograde panoramic fashion and the colon mucosa was carefully examined including a retroflexed view of the rectum. Findings and interventions are described below. Procedure Difficulty: without difficulty Findings: Terminal Ileum: Not evaluated Cecum: Normal Ascending Colon: A 2 cms flat polyp in the proximal AC at 80 cms. Polyp was raised with 4 cc of Eleview and removed with a stiff hot snare. Polypectomy site was closed with 1 hemoclip and marked with Skyla ink. A 2.5 cms flat polyp in the distal AC at 75 cms. Polyp was raised with 4 cc of Eleview and removed piecemeal with a stiff hot snare. Polypectomy site was closed with 1 hemoclip and marked with Skyla ink. Transverse Colon: Normal Descending Colon: A 7-8 mm sessile polyp - removed with a cold snare Sigmoid Colon: Moderate diverticulosis Rectum: Normal Ano-rectum: Moderate internal hemorrhoids Colon preparation: Good after some irrigation. [place] Bowel Preparation Scale Right colon; 2 Transverse colon: 2 Left colon; 2 (0 = Unprepared colon segment with mucosa not seen due to solid stool that cannot be cleared. 1 = Portion of mucosa of the colon segment seen, but other areas of the colon segment not well seen due to staining, residual stool and/or opaque liquid. 2 = Minor amount of residual staining, small fragments of stool and/or opaque liquid, but mucosa of colon segment seen well. 3 = Entire mucosa of colon segment seen well with no residual staining, small fragments of stool or opaque liquid) Impression and Post Procedure Diagnosis: Endoscopy Findings: ESOPHAGUS: Hiatal hernia 35 to 37 cms. A single 1 cms superficial healing erosion at the GE junction. STOMACH: Moderate diffuse gastritis DUODENUM: Normal Colonoscopy Findings: Three small to medium sized polyps were removed Moderate diverticulosis seen in the sigmoid colon Moderate hemorrhoids on retroflexed exam. Plan: Pt has a FU appointment on 03/06/25 with Nereida Grimm NP Repeat Colonoscopy in 6 to 12 months if polyps are adenomatous (to check polypectomy sites in the ascending colon) and 10 year if polyps are hyperplastic. A summary of above findings and relevant handouts were given to the patient. BIOPSIES SHOWED: A. Gastric antrum, biopsy: Gastric antral mucosa with chronic gastritis with mild-moderate activity and superficial bacteria suggesting H. pylori; negative for intestinal metaplasia and dysplasia. B. Gastric body, biopsy: Gastric antral and body mucosa with chronic gastritis with mild activity and superficial bacteria suggesting H. pylori; negative for intestinal metaplasia and dysplasia. C. Colon, ascending at 80 cm, polyp: Serrated polyp with focal features suggesting sessile serrated lesion/polyp without dysplasia (see comment). D. Colon, distal ascending, polyp: Serrated polyp with focal features suggesting sessile serrated lesion/ polyp without dysplasia (see comment). E. Colon, descending, polyp: Tubular adenoma; negative for high-grade dysplasia and carcinoma. Letter sent with biopsy results. Pt informed of positive H Pylori results and treated with Quadruple therapy H Pylori breath test can be performed during her FU appt on 03/06/25. Patient was placed on the colonoscopy recall list for repeat colonoscopy in 6 months.
[2025-01-05 13:12] VITALS: BP 102/62; PULSE 73; RESP 14; TEMP 36.3; O2SAT 98
[2025-01-05 13:27] VITALS: BP 117/80; PULSE 77; RESP 16; O2SAT 100
[2025-01-05 13:40] VITALS: BP 127/80; PULSE 70; RESP 16; TEMP 36.4; O2SAT 99
== END 2025-01-05 13:58 | disposition home or self-care (01) ==
PROVIDERS: Nurse Practitioner; PCP Internal Medicine; Visit Provider Internal Medicine Gastroenterology
PROC: (CPT 45385; principal; 2025-01-05 11:50)
DX: Z12.11 Encounter for screening for malignant neoplasm of colon (principal); D12.2 Benign neoplasm of ascending colon; D12.4 Benign neoplasm of descending colon; K57.30 Diverticulosis of large intestine without perforation or abscess without bleeding; K64.8 Other hemorrhoids; K21.9 Gastro-esophageal reflux disease without esophagitis; Z80.0 Family history of malignant neoplasm of digestive organs; K20.80 Other esophagitis without bleeding; R10.13 Epigastric pain; K29.50 Unspecified chronic gastritis without bleeding; B96.81 Helicobacter pylori [H. pylori] as the cause of diseases classified elsewhere; K29.80 Duodenitis without bleeding; K44.9 Diaphragmatic hernia without obstruction or gangrene; E78.00 Pure hypercholesterolemia, unspecified; G43.909 Migraine, unspecified, not intractable, without status migrainosus; R76.0 Raised antibody titer; E66.9 Obesity, unspecified; Z68.34 Body mass index [BMI] 34.0-34.9, adult; F41.9 Anxiety disorder, unspecified; J30.2 Other seasonal allergic rhinitis; Z79.899 Other long term (current) drug therapy; Z88.8 Allergy status to other drugs, medicaments and biological substances
CPT/HCPCS: 45385; 45381; 43239; 81025; 88305; 88342; J2003; J2704

== ENCOUNTER → 2025-01-05 09:35 | Outpatient (BNV) | payer BC, SELFPAY | PROVIDERS: PCP Internal Medicine; Visit Provider Internal Medicine Gastroenterology | DX: Z12.11 Encounter for screening for malignant neoplasm of colon (principal); D12.2 Benign neoplasm of ascending colon; D12.4 Benign neoplasm of descending colon; K57.30 Diverticulosis of large intestine without perforation or abscess without bleeding; K64.8 Other hemorrhoids; K21.9 Gastro-esophageal reflux disease without esophagitis; K29.50 Unspecified chronic gastritis without bleeding | CPT/HCPCS: 43239; 45381; 45385 ==

== ENCOUNTER 2025-02-05 08:31 | Outpatient (REF) | payer BC, SELFPAY ==
[2025-02-05 08:40] LABS: MANUAL DIFF FLAG NO
[2025-02-05 09:14] LABS: Hematocrit 42.8 % (37.0-47.0); Hemoglobin 13.9 g/dl (12.0-16.0); Imm Gran Abs Auto 0.02 X10*3/uL (0.00-0.03); Imm Gran Pct Auto 0.3 % (0.0-0.4); Lymphocytes Absolute Auto 1.9 X10*3/uL (1.2-4.9); Mean Corpuscular HGB Conc 32.5 g/dl (31.0-35.0); Mean Corpuscular Hemoglobin 26.9 pg (27.0-33.0); Mean Corpuscular Volume 82.8 fL (80.0-98.0); NRBC Abs Auto 0.000 X10*3/uL (0.0-0.012); NRBC Pct Auto 0.0 /100WBC (0.0-0.2); Platelet Count 346 X10*3/uL (160-400); Red Blood Count 5.17 X10*6/uL (4.20-5.50); White Blood Count 6.7 X10*3/uL (4.8-10.8)
[2025-02-05 09:49] LABS: Alanine Aminotransferase 33 U/L (0-31); Albumin Level 4.2 g/dL (3.5-5.0); Alkaline Phosphatase 65 U/L (39-117); Anion Gap 11 (12-20); Aspartate Amino Transferase 28 U/L (5-31); Blood Urea Nitrogen 12 mg/dL (9-16); Calcium 9.2 mg/dL (8.4-10.2); Carbon Dioxide 26 mmol/L (22-29); Chloride 106 mmol/L (96-108); Cholesterol 249 mg/dL (<200); Estimated Glomerular Filt Rate > 60; HDL Cholesterol 52 mg/dL (>40); Potassium 3.9 mmol/L (3.3-5.1); Sodium 139 mmol/L (135-145); Total Protein 7.1 g/dL (6.5-8.0); Triglycerides 156 mg/dL (<150)
[2025-02-05 09:51] LABS: Appearance Urine Clear; Glucose Urine UA Negative (Negative); PH 5.5 (5.0-9.0); Specific Gravity - Urine 1.020 (1.005-1.025)
--- OUTSIDE RECORDS SUMMARY | 2025-02-05 11:13 | XMS_ITS | Clinical Summary ---
Author Organization [facility] Address [address] [place] [address] Care Team Providers Care C Python Developer Name Role Phone Pcp, No Primary Care [...] patient's age to complete this topic Insurance [facility] [place] Care Teams C Python Developer Relationship Specialty Start Date End Date Pcp, No PCP - General General Medicine 02/13/24
--- OUTSIDE RECORDS SUMMARY | 2025-02-05 11:13 | XMS_ITS | Encounter Summary ---
Author Organization [facility] Address [address] [place] [address] Care Team Providers Care Product Marketing Executive Name Role Phone Pcp, No Primary Care Provider Unavailabl e Encounter Details Date Type Department Care Team (Late st Contact Info) Description 03/13/2024 Scanned Document [address] [facility] [place] [address] Provider, Generic Social History Tobacco [...] on filedocumented in this encounter Care Teams Product Marketing Executive Relationship Specialty Start Date End Date Pcp, No PCP - General General Medicine 02/13/24 documented as of this encounter
--- OUTSIDE RECORDS SUMMARY | 2025-02-05 11:13 | XMS_ITS | Encounter Summary ---
Author Organization [facility] Address [address] [place] [address] Care Team Providers Care Database Security Expert Name Role Phone Pcp, No Primary Care Provider Unavailabl e Encounter Details Date Type Department Care Team (Late st Contact Info) Description 03/13/2024 Scanned Document [address] [facility] [place] [address] Provider, Generic Social History Tobacco [...] on filedocumented in this encounter Care Teams Database Security Expert Relationship Specialty Start Date End Date Pcp, No PCP - General General Medicine 02/13/24 documented as of this encounter
--- OUTSIDE RECORDS SUMMARY | 2025-02-05 11:14 | XMS_ITS | Clinical Summary ---
Author Organization [facility] Address [address] [place] [id number] Phone Care Team Providers Care Archaeology Professor Name Role Phone Que Higgins MD Primary Care Provider [phone] Allergies Active Allergy Reactions Criticality Noted Date Comments Oxymetazoline Swelling 08/09/2019 Sulfa (Sulfonamide Antibiotics) 07/20 ? Medications therapeutic multivitamin tablet Take 1 tablet by mouth daily. Active vit E/linoleic/gamole n/borage (BORAGE INQ-[id number]-LGEIOTLK ACID ORAL)Indications: borage oil Take by mouth. [...] and summer months or while traveling to [facility] or [facility]. Sleep hygiene. Well-balanced nutritionally diet. Proper hydration. [...] and summer months or while traveling to [facility] or [facility]. Sleep hygiene. Well-balanced nutritionally diet. Proper hydration. Follow age-appropriate screenings and preventive strategies. Avoid sick contacts and known allergens. Call if problems or questions. Pain in both hands 08/09/2019 Assessment & Plan (08/09/2019 5:04 PM EDT): She had x-rays of her hands at [facility] in November 2018 but I did not receive report of it therefore she is asked to sign the medical records release for me to review it and keep in her chart in [facility]. Joint protection, energy conservation. Gentle, regular [...] consider 2nd opinion allergy/immunology consult either in [place] or [place] if interested to explore other options. Sensitivity [...] on patient's age to complete this topic IPV VACCINES Aged Out No longer eligi ble [...] (05/15/2021 8:33 AM EST) HDL 56 mg/dL [facility] Comment: Interpretation <40 mg/dL: Low HDL cholesterol (major risk factor for CHD) Greater than or equal to 60 mg/dL: High HDL cholesterol ( negative risk factor for CHD) HDL - cholesterol is affected by a number of factors, e.g. smoking, excerise, hormones, sex and age. CHOLESTEROL 217 0 - 240 mg/dL [facility] TRIGLYCERIDES 97 30 - 160 mg/dL [facility] LDL 142(H) 50 - 129 mg/dL [facility] Comment: LDL levels in terms of risk for coronary heart disease: <100 mg/dL: Optimal 100-129 mg/dL: Near or above optimal 130-159 mg/dL: Borderline high 160-189 mg/dL: High >190 mg/dL: Very High CARDIAC RISK RATIO 3.9 3.3 - 4.4 C [facility] Blood 05/15/2021 8:33 AM EST 05/15/2021 8:38 AM EST us Que Higgins MD LAB BLOOD BKR ORDERABLES Final Result [facility] [address] [place] [address] from Last 3 Months or Most Recently Relevant to Health Maintenance Insurance [facility] [employer] [facility] [employer] [facility] [employer] [facility] [employer] [place] [address] [address] [place] [address] Care Teams Archaeology Professor Relationship Specialty Start Date End Date Que Higgins MD [address] [place] [address] [place] [address] PCP - General Internal Medicine 04/07/19 Additional Source Comments The information contained in this document represents components of the legal health record. It is not the complete legal health record.[facility]
== END 2025-02-05 08:32 | disposition home or self-care (01) ==
LOC: HO.LAB 08:31
PROVIDERS: PCP Internal Medicine; Visit Provider Internal Medicine
DX: Z00.00 Encounter for general adult medical examination without abnormal findings (principal); E55.9 Vitamin D deficiency, unspecified; D64.9 Anemia, unspecified; E78.00 Pure hypercholesterolemia, unspecified; R30.0 Dysuria
CPT/HCPCS: 36415; 80053; 80061; 81003; 82306; 84443; 85025

== ENCOUNTER 2025-02-09 15:14 | Outpatient (AMB) | payer BC, SELFPAY ==
[2025-02-09 15:16] VITALS: BP 120/80; PULSE 82; O2SAT 98; BMI 34.3
--- NOTE | 2025-02-09 15:16 | A.OFFPC_ITS ---
Vital Signs 02/09/25 15:16 Height 5 ft 4 in Weight 200 lb 2 oz BMI 34.3 BP 120/80 Blood Pressure Location Lt brachial Position Sitting Pulse 82 Pulse Source Pulse Oximeter Pulse Oximetry (%) 98 Oxygen Delivery Method Room Air Intake Visit Reasons: 4 Months f/u Tools Administrator Required: No Accompanied by: Self / Same As Patient Allergies oxymetazoline (From Afrin (oxymetazoline)) Adverse Reaction (Mild, Verified 02/09/25 15:32) Swelling Medication List - Last Reconciled 02/09/25 by Que Higgins MD albuterol sulfate 90 mcg/actuation 2 puffs inhalation Q6H PRN 30 days bismuth subsalicylate 2 tabs PO QID 14 days cetirizine (Zyrtec) 10 mg PO DAILY citalopram 20 mg PO DAILY 90 days lorazepam 0.5 mg PO TID PRN 30 days metronidazole 375 mg PO QID 14 days montelukast 10 mg PO DAILY 90 days omeprazole 20 mg PO BID 14 days tetracycline 500 mg PO Q6H 14 days Tobacco use date assessed: 02/09/25 Dental Screening Dental Screen Date: 02/09/25 Did you have a dental visit in the last 12 months?: Yes Did you have a dental problem in the last 6 months where you did not have access to dental care?: No Was dental information given to patient?: Patient has dentist HPI 4 Months f/u HPI Details - The patient is a 49 year old individua l presenting for follow-up on recent labs and management of chronic conditions. - Hypercholesterolemia: The patient's to stefanie cholesterol has increased to 249 mg/dL from 231 mg/dL last year, and LDL cholesterol is up to 166 mg/dL from 150 mg/dL. - These are the highest levels observed in the last 3-4 years. - The patient's father has a history of high cholesterol. - The patient reports a recent weight ga in, but also an increase in consumption of fruits and vegetables. - Gastrointestinal History: The patient recently underwent an EGD and colonos copy. - The EGD revealed an erosion at the gas troesophageal junction, and a biopsy confirmed an H. pylori infection. - The patient completed a two-week treat ment regimen including two antibiotics, a PPI, and Pepto-Bismol, and reports improvement in stomach symptoms. - The colonoscopy identified a flat poly p, which pathology confirmed as a tubular adenoma. - The stocklayer recommended a r epeat colonoscopy in 6-12 months. - Allergies and Vision: The patient has chronic sinus issues and was using Rhinocort daily, but has since stopped. - The patient developed a cataract and f oggy vision in one eye and her eye doctor suggested a possible link between prolonged steroid use and cataracts. - The cataract is not currently large en ough to require intervention. - Other Labs and Medical History: The hilda cevallos's blood sugar and liver enzymes are normal. [facility] Medical History GERD (gastroesophageal reflux disease) Pure hypercholesterolemia Migraine Obesity (BMI 30-39.9) Anxiety Seasonal allergic rhinitis due to pollen Positive SARAH (antinuclear antibody) Surgical History History of foot surgery Family History Father Stomach cancer Mother Diabetes Hypertension CVD (cardiovascular disease) Brother Healthy adult Sister Healthy adult Daughter No problems noted. Social History Housing: House Alcohol intake: current Alcohol intake frequency: holidays/special occasions only Alcohol type: wine Patient Tobacco Use Status: Never used Tobacco e-Cigarette/Vaping Use: Never Used Second Hand Smoke Exposure: Yes service: No Current occupational status: employed Current occupational exposures/hazards: No Cognitive needs: No Hearing needs: No Vision needs: Yes (glasses) Questionnaire PHQ-9 Over the last 2 weeks, how often have you been bothered by any of the following problems? 1. Little interest or pleasure in doing things: not at all 2. Feeling down, depressed, or hopeless: not at all 3. Trouble falling or staying asleep, or sleeping too much: not at all 4. Feeling tired or having little energy: nearly every day 5. Poor appetite or overeating: nearly every day 6. Feeling bad about yourself - or that you are a failure or have let yourself or your family down: not at all 7. Trouble concentrating on things, such as reading the newspaper or watching television: not at all 8. Moving or speaking so slowly that other people could have noticed. Or the opposite - being so fidgety or restless that you have been moving around a lot more than usual: not at all 9. Thoughts that you would be better off or of hurting yourself in some way: not at all Total score: 6 Depression Screening Interpretation: Positive Depression Screening Follow-up: Existing condition and In treatment Depression Screening Done: Yes 26861 - PHQ-9 Billing: Yes Source: Developed by Drs. Luis Regalado, Yani Trinidad, Saurabh Urena and colleagues, with an educational howie from [employer]. Thrive Questionnaire Date Thrive assessed: 02/09/25 I am a: Patient What is your living situation today?: I have a steady place to live Within the past 12 months, did the food you bought not last and you didn't have the money to get more?: Never true Within the past 12 months, did you worry whether your food would run out before you got money to buy more?: Never true Do you have trouble paying for medicines?: No Do you have trouble getting transportation to medical appointments?: No Do you have trouble paying your heating and electricity bill?: No Do you have trouble taking care of your child, family member or friend?: No Do you have trouble with day-to-day activities such as bathing, preparing meals, shopping, managing finances, etc.?: No Are you currently unemployed and looking for a job?: No Are you interested in more education?: No Please select the resources that you would like help with: None Currently or been in a relationship where the following occur: I choose not to answer THRIVE Score: 0 AUDIT C Alcohol Use Questionnaire (AUDIT-C) 1. How often do you have a drink containing alcohol?: Monthly or less 2. How many drinks containing alcohol do you have on a typical day when you are drinking?: 1 or 2 3. How often do you have six or more drinks on one occasion?: Never Total Score: 1 Score Reviewed/Action Taken: Yes AARON-7 AMB Questionnaire AARON-7 Date AARON - 7 assessed: 02/09/25 Feeling nervous, anxious, or on edge: 3 = Nearly every day Not being able to stop or control worryin = More than half the days Worrying too much about different things: 2 = More than half the days Trouble relaxin = More than half the days Being so restless that it is hard to sit still: 0 = Not at all Becoming easily annoyed or irritable: 0 = Not at all Feeling afraid as if something awful might happen: 2 = More than half the days Total AARON-7 score (0-4 normal; 5-9 mild; 10-14 moderate; 15-21 severe): 11 Source: Developed by Drs. Luis Regalado, Yani Trinidad, Saurabh Urena and colleagues, with an educational howie from [employer]. Review of Systems Const Denies chills, Reports fatigue, Denies fever(s) and Reports headache(s) (on and off) Eyes Reports blurry vision (in the left eye) ENT Denies dysphagia, Denies dizziness, Denies otalgia, Reports headache(s) (on and off), Reports nasal congestion (recurrent), Denies neck pain, Denies odynophagia and Denies sore throat Card Denies chest pain, Denies rapid heart rate, Denies irregular heart rhythm, Denies palpitations and Denies dyspnea Resp Denies chest congestion, Denies cough, Denies dyspnea and Denies wheezing GI Denies abdominal pain, Denies constipation, Denies dysphagia, Denies heartburn, Denies diarrhea, Denies nausea, Denies odynophagia and Denies vomiting Denies hematuria, Denies difficulty voiding, Denies dysuria and Denies urinary urgency Musc Denies back pain, Denies arthralgias and Denies neck pain Skin/Breast Denies rash Neuro Denies dizziness, Reports headache(s) (on and off) and Denies paresthesias Psych Reports anxiety (controlled) and Denies depression Endo Reports fatigue and Denies palpitations [place]/Lymph Denies easy bruising Aller/Immun Denies wheezing Physical exam (Primary Care) Vital Signs: Last Vital Signs Pulse 82 02/09/25 15:16 BP 120/80 02/09/25 15:16 Pulse Ox 98 02/09/25 15:16 Oxygen Delivery Method Room Air 02/09/25 15:16 BMI result Body Mass Index 34.3 Tobacco/Smoking Status: Tobacco use Status Tobacco use date assessed 02/09/25 02/09/25 15:24 Patient Tobacco Use Status Never used Tobacco 02/09/25 15:24 e-Cigarette/Vaping Use Never Used 02/09/25 15:24 PHQ-9: PHQ-9 Score PHQ-9: Total score 6 02/09/25 15:34 Depression Screening Interpretation: Positive Depression Screening Follow-up: Existing condition and In treatment Thrive Assessment: Date of Thrive Assessment Date Thrive assessed 02/09/25 02/09/25 15:24 Currently or been in a relationship where the following occur: I choose not to answer Const General: no acute distress and alert HENMT Ears: TM's normal bilaterally and EAC's normal Throat: Yes posterior oropharynx normal and Yes tonsils normal (no TP congestion) Neck Neck: Yes supple and No lymphadenopathy Thyroid: Thyroid normal Resp Auscultation: clear to auscultation bilaterally, no rales and no wheezes Cardio Rate: regular rate Rhythm: regular rhythm Heart sounds: no murmurs GI Palpation (GI): Soft to palpation and nontender Auscultation: normal bowel sounds General: Yes no CVA tenderness Back/Spine/Pelvis Back: no CVA tenderness Thoracic/Lumbar Spine: No lumbar spinal tenderness Skin Rashes: no rashes Extrem General: Yes no clubbing, cyanosis or edema Results Reviewed Results Reviewed: Laboratory Tests 02/05/25 02/05/25 08:35 08:39 WBC 6.7 Hgb 13.9 Hct 42.8 Plt Count 346 Sodium 139 Potassium 3.9 Creatinine 0.76 Estimated GFR > 60 Fasting Glucose 91 Calcium 9.2 AST 28 ALT 33 H Triglycerides 156 H Cholesterol 249 H LDL Cholesterol, Calc 166 H HDL Cholesterol 52 25-OH Vitamin D Total 28.1 L TSH 0.58 Ur Specific Stanley 1.020 Urine Protein Negative Urine Glucose (UA) Negative Urine Blood Negative Urine Nitrite Negative Ur Leukocyte Esterase Negative Coding Level of Care Code Est Pt Level 4 (02697) Diagnoses Pure hypercholesterolemia E78.00 Intermittent palpitations R00.2 Seasonal allergic rhinitis due to pollen J30.1 Positive SARAH (antinuclear antibody) R76.8 Anxiety F41.9 Obesity (BMI 30-39.9) E66.9 Additional Codes PHQ-9 - 02284 - PHQ-9 Billing: Yes ([id number]) Assessment & Plan Assessment & Plan (1) Pure hypercholesterolemia: Code(s): E78.00 - Pure hypercholesterolemia, unspecified Category: Medical Plan: Results of her labs done a few days ago reviewed and discussed with patient Her cholesterol levels were still elevated and have increased slightly from previous Reinforced low cholesterol diet Will recheck her labs and fasting lipids in 4 months for follow up (2) Intermittent palpitations: Code(s): R00.2 - Palpitations Category: Medical Plan: States that her symptoms (palpitations) occur very rarely nowadays Holter monitor and echocardiogram done back in June 2021 all came out unrevealing/normal (3) Seasonal allergic rhinitis due to pollen: Code(s): J30.1 - Allergic rhinitis due to pollen Category: Medical Plan: Continue Montelukast 10 mg QD, Cetirizine 10 mg QD PRN and Rhinocort Allergy Suspension 32 mcg/act 1 to 2 sprays into each nostril BID PRN (4) Positive SARAH (antinuclear antibody): Comment: has been tested for lupus - NEGATIVE Code(s): R76.8 - Other specified abnormal immunological findings in serum Category: Medical Plan: Her SARAH came back positive on her labs done at [facility] a few years ago and again here at [facility] in 2022 but her double stranded anti-DNA Ab came back negative, which rules out lupus This was rechecked by rheumatology last year and again came back negative; she has been advised by rheumatology that her joint symptoms are most likely due to tendinitis and that she has no evidence of an inflammatory joint disease Follow up with rheumatology as scheduled or as needed (5) Anxiety: Code(s): F41.9 - Anxiety disorder, unspecified Category: Medical Plan: Continue Lorazepam 0.5 mg TID PRN and Citalopram 20 mg QD Patient stopped taking her Citalopram about a year ago as she felt that the medication was causing her to have an increased appetite at the time but with her increasing anxiety she went back on the Rx (6) Obesity (BMI 30-39.9): Code(s): E66.9 - Obesity, unspecified Category: Medical Plan: Reinforced diet/exercise as tolerated/lose weight Plan Follow up in 4 months Orders: Orders Complete Blood Count Auto Diff 4 Months D64.9 - Anemia, unspecified Comprehensive [place]. Panel Fast 4 Months E78.00 - Pure hypercholesterolemia, unspecified Liver Panel 4 Months R79.89 - Other specified abnormal findings of blood chemistry TSH reflex Free T4 4 Months E78.00 - Pure hypercholesterolemia, unspecified UA CC w/rflx Micro + Cult 4 Months R30.0 - Dysuria
--- OUTSIDE RECORDS SUMMARY | 2025-02-09 15:18 | XMS_ITS | Clinical Summary ---
Author Organization [facility] Address [address] [place] [address] Care Team Providers Care Home Care Coordinator Name Role Phone Pcp, No Primary Care [...] patient's age to complete this topic Insurance [facility] Care Teams Home Care Coordinator Relationship Specialty Start Date End Date Pcp, No PCP - General General Medicine 02/13/24
--- OUTSIDE RECORDS SUMMARY | 2025-02-09 15:18 | XMS_ITS | Clinical Summary ---
Author Organization [facility] Address [address] [place] [id number] Phone Care Team Providers Care In House Counsel Name Role Phone Que Higgins MD Primary Care Provider [phone] Allergies Active Allergy Reactions Criticality Noted Date Comments Oxymetazoline Swelling 08/09/2019 Sulfa (Sulfonamide Antibiotics) 07/20 ? Medications therapeutic multivitamin tablet Take 1 tablet by mouth daily. Active vit E/linoleic/gamole n/borage (BORAGE [id number] ACID ORAL)Indications: borage oil Take by mouth. [...] traveling to [facility] or [facility]. Sleep hygiene. Well-balanced nutritionally diet. Proper hydration. [...] traveling to [facility] or [facility] [place]. Sleep hygiene. Well-balanced nutritionally diet. Proper hydration. Follow age-appropriate screenings and preventive strategies. Avoid sick contacts and known allergens. Call if problems or questions. Pain in both hands 08/09/2019 Assessment & Plan (08/09/2019 5:04 PM EDT): She had x-rays of her hands at [facility] in November 2018 but I [...] consider 2nd opinion allergy/immunology consult either in [place] or [place] if interested to explore other options. Sensitivity [...] (05/15/2021 8:33 AM EST) HDL 56 mg/dL [facility] Comment: Interpretation <40 mg/dL: Low HDL cholesterol (major risk factor for CHD) Greater than or equal to 60 mg/dL: High HDL cholesterol ( negative risk factor for CHD) HDL - cholesterol is affected by a number of factors, e.g. smoking, excerise, hormones, sex and age. CHOLESTEROL 217 0 - 240 mg/dL [facility] TRIGLYCERIDES 97 30 - 160 mg/dL [facility] LDL 142(H) 50 - 129 mg/dL [facility] Comment: LDL levels in terms of risk for coronary heart disease: <100 mg/dL: Optimal 100-129 mg/dL: Near or above optimal 130-159 mg/dL: Borderline high 160-189 mg/dL: High >190 mg/dL: Very High CARDIAC RISK RATIO 3.9 3.3 - 4.4 C [facility] Blood 05/15/2021 8:33 AM EST 05/15/2021 8:38 AM EST us Que Higgins MD LAB BLOOD BKR ORDERABLES Final Result [facility] [address] [place], [place] [id number] from Last 3 Months or Most Recently Relevant to Health Maintenance Insurance [facility] [employer]ERAL [employer] [facility] [employer] [facility] [employer] [facility] [place] [address] [address] FEDERAL [facility] FEDERAL Care Teams In House Counsel Relationship Specialty Start Date End Date Que Higgins MD [address] [place] [address] [place] [address] PCP - General Internal Medicine 04/07/19 Additional Source Comments The information contained in this document represents components of the legal health record. It is not the complete legal health record.[facility]
--- OUTSIDE RECORDS SUMMARY | 2025-02-09 15:18 | XMS_ITS | Encounter Summary ---
Author Organization [facility] Address [address] [place] [address] Care Team Providers Care Silk Folder Name Role Phone Pcp, No Primary Care Provider Unavailabl e Encounter Details Date Type Department Care Team (Late st Contact Info) Description 03/13/2024 Scanned Document [address] [facility] [place] [address] Provider, Generic Social History Tobacco [...] on filedocumented in this encounter Care Teams Silk Folder Relationship Specialty Start Date End Date Pcp, No PCP - General General Medicine 02/13/24 documented as of this encounter
--- OUTSIDE RECORDS SUMMARY | 2025-02-09 15:18 | XMS_ITS | Encounter Summary ---
Author Organization [facility] Address [address] [place] [address] Care Team Providers Care Heel Cementer Name Role Phone Pcp, No Primary Care Provider Unavailabl e Encounter Details Date Type Department Care Team (Late st Contact Info) Description 03/13/2024 Scanned Document [address] [facility] [place] [address] Provider, Generic Social History Tobacco [...] on filedocumented in this encounter Care Teams Heel Cementer Relationship Specialty Start Date End Date Pcp, No PCP - General General Medicine 02/13/24 documented as of this encounter
== END 2025-02-09 16:06 | disposition home or self-care (01) ==
LOC: HO.HMCH 15:15
PROVIDERS: PCP Internal Medicine; Visit Provider Internal Medicine
DX: E78.00 Pure hypercholesterolemia, unspecified (principal); R00.2 Palpitations; J30.1 Allergic rhinitis due to pollen; R76.89 Other specified abnormal immunological findings in serum; F41.9 Anxiety disorder, unspecified; E66.9 Obesity, unspecified; Z68.34 Body mass index [BMI] 34.0-34.9, adult

== ENCOUNTER → 2025-02-09 15:14 | Outpatient (BNVA) | payer BC, SELFPAY | PROVIDERS: PCP Internal Medicine; Visit Provider Internal Medicine | DX: K21.9 Gastro-esophageal reflux disease without esophagitis (principal); E78.00 Pure hypercholesterolemia, unspecified; R00.2 Palpitations; J30.1 Allergic rhinitis due to pollen; R76.89 Other specified abnormal immunological findings in serum; F41.9 Anxiety disorder, unspecified; E66.9 Obesity, unspecified; Z68.34 Body mass index [BMI] 34.0-34.9, adult | CPT/HCPCS: 96127 ==

== ENCOUNTER 2025-03-06 12:48 | Outpatient (AMB) | payer BC, SELFPAY ==
--- NOTE | 2025-03-06 12:57 | A.OFFVIS_ITS ---
Vital Signs 03/06/25 13:03 Height 5 ft 4 in Weight 200 lb BMI 34.3 BP 110/68 Blood Pressure Location Rt brachial Position Sitting Pulse 72 Pulse Source Pulse Oximeter Pulse Oximetry (%) 97 Oxygen Delivery Method Room Air Intake Visit Reasons: s/p colo egd Colin Intake Note: Est pt for mgmt of GERD. S/P Double. CC; Pt denies any current GI sx or concerns. Confirmed that she completed the HP abx treatment as instructed. She also decided to switch to prelief for GERD mgmt instead of omeprazole and has found this to be more effective. It Compliance Analyst Required: No Accompanied by: Self / Same As Patient Allergies oxymetazoline (From Afrin (oxymetazoline)) Adverse Reaction (Mild, Verified 03/06/25 12:57) Swelling HPI HPI s/p colo egd Colin: Details: LAST VISIT Colon cancer screening GERD (gastroesophageal reflux disease) Postprandial epigastric pain Plan Patient denies any cardiac or respiratory symptoms.? Patient reports acid reflux. Discussed with patient avoiding dietary triggers and late night snacking. Staying upright for minimum 3 hours after meals discussed with patient. Patient will be sent for upper endoscopy to rule out gastritis, esophagitis, duodenitis, Morton's. Patient will start omeprazole 20 mg daily. Denies any issues with anesthesia in the past.? Denies any history of sleep apnea.? No history infectious diseases in the past or present.? Not on any anticoagulation therapy.? No family or personal history of colon cancer or polyps.? Patient denies melena, hematochezia, unintentional weight loss or ribbon like stools.? Discussed at length the pre-procedure,? prep, diet & medications as well as what to expect prior, during and after the procedure.?? Stressed the importance of good bowel prep.? Recommended the use of Vaseline or Calmoseptine OTC & baby wipes with bowel movements to promote comfort.? ?Patient verbalizes understanding and agrees to plan of care.? She was given the opportunity to ask questions and all questions answered.? We will see her after the procedure.? New bisacodyl (Dulcolax (bisacodyl)) take 4 tabs at noon the day before your colonoscopy 20 mg (4 x 5 mg) PO ONCE 4 tabs 0RF constipation 1 day Z12.11 polyethylene glycol 3350 (Miralax) As directed by gastroenterology department at [facility] 238 grams PO ONCE 238 grams 0RF Z12.11 omeprazole 20 mg PO DAILY 90 caps 2RF K21.9 UPPER ENDOSCOPY AND COLONOSCOPY Findings: Larynx: Normal Esophagus: GE junction at 35 cms, hiatal hernia 35 to 37 cms. A single 1 cms superficial healing erosion at the GE junction. No Morton's. Stomach: Moderate diffuse gastric erythema - biopsies were obtained from the gastric body and antrum. Grade 2 flap valve on retroflexed examination of the cardia. Duodenum: Normal bulb and descending duodenum Intervention: Biopsies as noted above COLONOSCOPY PROCEDURE NOTE Instrument: Olympus PCF H 190 L variable stiffness pediatric colonoscope Monitoring: Vital signs and clinical assessment, intermittent blood pressure monitoring, continuous EKG monitoring, Pulse oximetry and Carbon Dioxide monitoring were done throughout the procedure. Please see anesthesia flowsheet. Colon withdrawl time was 30 minutes. Procedure: The patient was placed in the left lateral decubitis position and pre-procedure medications were administered. After a digital rectal examination of the ano-rectum, the video colonoscope was inserted into the rectum and advanced through the colon to the cecum. The colonoscope was slowly withdrawn in a retrograde panoramic fashion and the colon mucosa was carefully examined including a retroflexed view of the rectum. Findings and interventions are described below. Procedure Difficulty: without difficulty Findings: Terminal Ileum: Not evaluated Cecum: Normal Ascending Colon: A 2 cms flat polyp in the proximal AC at 80 cms. Polyp was raised with 4 cc of Eleview and removed with a stiff hot snare. Polypectomy site was closed with 1 hemoclip and marked with Skyla ink. A 2.5 cms flat polyp in the distal AC at 75 cms. Polyp was raised with 4 cc of Eleview and removed piecemeal with a stiff hot snare. Polypectomy site was closed with 1 hemoclip and marked with Skyla ink. Transverse Colon: Normal Descending Colon: A 7-8 mm sessile polyp - removed with a cold snare Sigmoid Colon: Moderate diverticulosis Rectum: Normal Ano-rectum: Moderate internal hemorrhoids Colon preparation: Good after some irrigation. [place] Bowel Preparation Scale Right colon; 2 Transverse colon: 2 Left colon; 2 (0 = Unprepared colon segment with mucosa not seen due to solid stool that cannot be cleared. 1 = Portion of mucosa of the colon segment seen, but other areas of the colon segment not well seen due to staining, residual stool and/or opaque liquid. 2 = Minor amount of residual staining, small fragments of stool and/or opaque liquid, but mucosa of colon segment seen well. 3 = Entire mucosa of colon segment seen well with no residual staining, small fragments of stool or opaque liquid) Impression and Post Procedure Diagnosis: Endoscopy Findings: ESOPHAGUS: Hiatal hernia 35 to 37 cms. A single 1 cms superficial healing erosion at the GE junction. STOMACH: Moderate diffuse gastritis DUODENUM: Normal Colonoscopy Findings: Three small to medium sized polyps were removed Moderate diverticulosis seen in the sigmoid colon Moderate hemorrhoids on retroflexed exam. Plan: Pt has a FU appointment on 03/06/25 with Nereida Grimm NP Repeat Colonoscopy in 6 to 12 months if polyps are adenomatous (to check polypectomy sites in the ascending colon) and 10 year if polyps are hyperplastic. A summary of above findings and relevant handouts were given to the patient. BIOPSIES SHOWED: A. Gastric antrum, biopsy: Gastric antral mucosa with chronic gastritis with mild-moderate activity and superficial bacteria suggesting H. pylori; negative for intestinal metaplasia and dysplasia. B. Gastric body, biopsy: Gastric antral and body mucosa with chronic gastritis with mild activity and superficial bacteria suggesting H. pylori; negative for intestinal metaplasia and dysplasia. C. Colon, ascending at 80 cm, polyp: Serrated polyp with focal features suggesting sessile serrated lesion/polyp without dysplasia (see comment). D. Colon, distal ascending, polyp: Serrated polyp with focal features suggesting sessile serrated lesion/ polyp without dysplasia (see comment). E. Colon, descending, polyp: Tubular adenoma; negative for high-grade dysplasia and carcinoma. Letter sent with biopsy results. Pt informed of positive H Pylori results and treated with Quadruple therapy H Pylori breath test can be performed during her FU appt on 03/06/25. Patient was placed on the colonoscopy recall list for repeat colonoscopy in 6 months. TODAY'S VISIT Patient is here today for follow-up and discuss upper endoscopy and colonoscopy results. Patient denies any ill effects from the prep, anesthesia or procedure itself. Patient reports to be feeling fairly well. Diagnosed with H pylori on upper endoscopy and was treated with quadruple therapy. Patient reports that she is no longer taking any PPI as she is feeling good. Patient denies any dyspepsia, dysphagia or odynophagia. Ascending colon sessile serrated polyp and patient will need to repeat colonoscopy in 6 months to recheck polypectomies side. Moderate diverticulosis seen in the sigmoid colon as well as moderate internal hemorrhoids. Patient denies any issues with anesthesia. Denies any cardiac or respiratory symptoms. Patient reports that she has been feeling well since the procedure [facility] Medical History (Updated 03/18/25 @ 19:20 by Kim Grimm [facility]) Sessile serrated polyp of colon Diverticulosis GERD (gastroesophageal reflux disease) Pure hypercholesterolemia Migraine Obesity (BMI 30-39.9) Anxiety Seasonal allergic rhinitis due to pollen Positive SARAH (antinuclear antibody) Surgical History History of foot surgery Family History Father Stomach cancer Mother Diabetes Hypertension CVD (cardiovascular disease) Brother Healthy adult Sister Healthy adult Daughter No problems noted. Social History Housing: House Alcohol intake: current Alcohol intake frequency: holidays/special occasions only Alcohol type: wine Patient Tobacco Use Status: Never used Tobacco e-Cigarette/Vaping Use: Never Used Second Hand Smoke Exposure: Yes service: No Current occupational status: employed Current occupational exposures/hazards: No Cognitive needs: No Hearing needs: No Vision needs: Yes (glasses) Review of Systems Const Denies weight gain and Denies weight loss ENT Reports no additional complaints, Denies dysphagia and Denies odynophagia Card Reports no additional complaints Resp Reports no additional complaints GI Denies abdominal pain, Denies belching, Denies melena, Denies bloating, Denies change in bowel habits, Denies dysphagia, Denies excessive flatus, Denies dyspepsia, Denies heartburn, Denies diarrhea, Denies loose stools, Denies nausea, Denies odynophagia and Denies vomiting Reports no additional complaints Musc Reports no additional complaints Neuro Reports no additional complaints Psych Reports no additional complaints Endo Reports no additional complaints Physical Exam Vital Signs: Last Vital Signs Pulse 72 03/06/25 13:03 BP 110/68 03/06/25 13:03 Pulse Ox 97 03/06/25 13:03 Oxygen Delivery Method Room Air 03/06/25 13:03 BMI result Body Mass Index 34.3 Const General: healthy appearing and no acute distress Nutritional Appearance: obese Orientation/consciousness: patient oriented x3 Resp Effort & Inspection: normal respiratory effort, able to speak in complete sentences, no tracheal deviation and symmetric chest movement Auscultation: clear to auscultation bilaterally Cardio Rate: regular rate GI Inspection: Yes normal to inspection, No distended and Yes obesity Palpation (GI): Soft to palpation, not firm, nontender and No hepatosplenomegaly present Auscultation: normal bowel sounds General: Yes no CVA tenderness Back/Spine/Pelvis Back: no CVA tenderness Skin General skin exam: elasticity normal, turgor normal and dry skin Neuro General: patient oriented x3 Psych Appearance: grossly normal Mental Status: mental status grossly normal Assessment & Plan Assessment & Plan (1) GERD (gastroesophageal reflux disease): Code(s): K21.9 - Gastro-esophageal reflux disease without esophagitis Category: Medical Qualifiers: Esophagitis presence: esophagitis presence not specified Qualified Code(s): K21.9 - Gastro-esophageal reflux disease without esophagitis (2) Helicobacter pylori gastritis: Code(s): K29.70 - Gastritis, unspecified, without bleeding; B96.81 - Helicobacter pylori [H. pylori] as the cause of diseases classified elsewhere Category: Medical (3) Colon cancer screening: Code(s): Z12.11 - Encounter for screening for malignant neoplasm of colon Category: Medical (4) Diverticulosis: Code(s): K57.90 - Diverticulosis of intestine, part unspecified, without perforation or abscess without bleeding Category: Medical (5) Internal hemorrhoids without complication: Code(s): K64.8 - Other hemorrhoids (6) Sessile serrated polyp of colon: Code(s): D12.6 - Benign neoplasm of colon, unspecified Category: Medical (7) Tubular adenoma of colon: Code(s): D12.6 - Benign neoplasm of colon, unspecified Plan Will repeat H pylori breath test today. Patient will be sent for colonoscopy in June. Message sent to surgical schedulers and colonoscopy ordered. What to expect before during and after procedure discussed with patient. Stressed the importance of good bowel prep and clear liquid diet day before procedure. I will see patient after the procedure. Patient is agreeable to current plan of care and verbalizes understanding of instructions. She was given the opportunity to ask questions and all questions answered. Thank you for allowing me to participate in her care Orders: Orders H Pylori Breath Test 03/06/25 K21.9 - Gastro-esophageal reflux disease without esophagitis Referrals GI Procedure Notification Z12.11 - Encounter for screening for malignant neoplasm of colon Medications: New polyethylene glycol 3350 (Miralax) As directed by gastroenterology department at [facility] 238 grams PO ONCE 238 grams 0RF Z12.11 - Encounter for screening for malignant neoplasm of colon bisacodyl (Dulcolax (bisacodyl)) take 4 tabs at noon the day before your colonoscopy 20 mg (4 x 5 mg) PO ONCE 4 tabs 0RF constipation 1 day Z12.11 - Encounter for screening for malignant neoplasm of colon bisacodyl (Dulcolax (bisacodyl)) take 4 tabs at noon the day before your colonoscopy 20 mg (4 x 5 mg) PO ONCE 4 tabs 0RF constipation 1 day Z12.11 - Encounter for screening for malignant neoplasm of colon polyethylene glycol 3350 (Miralax) As directed by gastroenterology department at [facility] 238 grams PO ONCE 238 grams 0RF Z12.11 - Encounter for screening for malignant neoplasm of colon Coding Level of Care Code Est Pt Level 3 (87417) Diagnoses Gastroesophageal reflux disease, unspecified whether esophagitis present K21.9 Esophagitis presence: esophagitis presence not specified Helicobacter pylori gastritis K29.70; B96.81 Colon cancer screening Z12.11 Diverticulosis K57.90 Internal hemorrhoids without complication K64.8 Sessile serrated polyp of colon D12.6 Tubular adenoma of colon D12.6 Time Spent (min) 30 Comment 20 minutes spent with patient and additional 10 minutes spent reviewing her records
[2025-03-06 13:03] VITALS: BP 110/68; PULSE 72; O2SAT 97; BMI 34.3
--- OUTSIDE RECORDS SUMMARY | 2025-03-06 16:39 | XMS_ITS | Clinical Summary ---
Author Organization [facility] Address [address] [place] [phone] Phone Care Team Providers Care Thread Clipper Name Role Phone Que Higgins MD Primary Care Provider [phone] Allergies Active Allergy Reactions Criticality Noted Date Comments Oxymetazoline Swelling 08/09/2019 Sulfa (Sulfonamide Antibiotics) 07/20 ? Medications therapeutic multivitamin tablet Take 1 tablet by mouth daily. Active vit E/linoleic/gamole n/borage (BORAGE [id number] ACID ORAL)Indications: borage oil Take by mouth. [...] and summer months or while traveling to [facility] or [facility]. Sleep hygiene. Well-balanced nutritionally diet. Proper [...] and summer months or while traveling to [facility] or [facility] [place]. Sleep hygiene. Well-balanced nutritionally diet. Proper hydration. Follow age-appropriate screenings and preventive strategies. Avoid sick contacts and known allergens. Call if problems or questions. Pain in both hands 08/09/2019 Assessment & Plan (08/09/2019 5:04 PM EDT): She had x-rays of her hands at [facility] in November 2018 but I did not receive report of it therefore she is asked to sign the medical records release for me to review it and keep in her chart in [facility]. Joint protection, energy conservation. Gentle, regular [...] consider 2nd opinion allergy/immunology consult either in [place] or [place] if interested to explore other options. Sensitivity [...] (05/15/2021 8:33 AM EST) HDL 56 mg/dL [facility] Comment: Interpretation <40 mg/dL: Low HDL cholesterol (major risk factor for CHD) Greater than or equal to 60 mg/dL: High HDL cholesterol ( negative risk factor for CHD) HDL - cholesterol is affected by a number of factors, e.g. smoking, excerise, hormones, sex and age. CHOLESTEROL 217 0 - 240 mg/dL [facility] TRIGLYCERIDES 97 30 - 160 mg/dL [facility] LDL 142(H) 50 - 129 mg/dL [facility] Comment: LDL levels in terms of risk for coronary heart disease: <100 mg/dL: Optimal 100-129 mg/dL: Near or above optimal 130-159 mg/dL: Borderline high 160-189 mg/dL: High >190 mg/dL: Very High CARDIAC RISK RATIO 3.9 3.3 - 4.4 C [facility] Blood 05/15/2021 8:33 AM EST 05/15/2021 8:38 AM EST us Que Higgins MD LAB BLOOD BKR ORDERABLES Final Result [facility] [address] [place], [place] [id number] from Last 3 Months or Most Recently Relevant to Health Maintenance Insurance [facility] FEDERAL [employer] F[employer]ptu Fliptu Clixtr [facility] ITelagen [facility] ITelagen [facility] [place] [address] FEDERAL [employer] FEDERAL Care Teams Thread Clipper Relationship Specialty Start Date End Date Que Higgins MD [address] [place] [address] [place] [address] PCP - General Internal Medicine 04/07/19 Additional Source Comments The information contained in this document represents components of the legal health record. It is not the complete legal health record.[facility]
== END 2025-03-06 13:56 | disposition home or self-care (01) ==
LOC: HO.HGI 12:48
PROVIDERS: PCP Internal Medicine; Visit Provider Nurse Practitioner Family
DX: K21.9 Gastro-esophageal reflux disease without esophagitis (principal); K29.70 Gastritis, unspecified, without bleeding; B96.81 Helicobacter pylori [H. pylori] as the cause of diseases classified elsewhere; K57.90 Diverticulosis of intestine, part unspecified, without perforation or abscess without bleeding; K64.8 Other hemorrhoids; D12.6 Benign neoplasm of colon, unspecified
CPT/HCPCS: 99213

== ENCOUNTER 2025-03-06 12:48 | Outpatient (REF) | payer BC, SELFPAY ==
--- OUTSIDE RECORDS SUMMARY | 2025-03-06 20:17 | XMS_ITS | Encounter Summary ---
Author Organization [facility] Address [address] [place] [address] Care Team Providers Care Rock Climbing Team Member Name Role Phone Pcp, No Primary Care Provider Unavailabl e Encounter Details Date Type Department Care Team (Late st Contact Info) Description 03/13/2024 Scanned Document [address] [facility] [place] [address] Provider, Generic Social History Tobacco [...] on filedocumented in this encounter Care Teams Rock Climbing Team Member Relationship Specialty Start Date End Date Pcp, No PCP - General General Medicine 02/13/24 documented as of this encounter
--- OUTSIDE RECORDS SUMMARY | 2025-03-06 20:17 | XMS_ITS | Clinical Summary ---
Author Organization [facility] Address [address] [place] [address] Care Team Providers Care Primer Inspector Name Role Phone Pcp, No Primary Care [...] Influenza Vaccine 10/20/2024 COVID-19 Vaccine (1 - 2024-2 6 season) 2024 Pneumococcal Vaccine: Pediat bonnie (0-5 Years) and At-Risk Patients (6 to 49 Years) Aged Out No longer eligible b ased on patient's age to complete this topic Insurance [facility] Care Teams Primer Inspector Relationship Specialty Start Date End Date Pcp, No PCP - General General Medicine 02/13/24
--- OUTSIDE RECORDS SUMMARY | 2025-03-06 20:17 | XMS_ITS | Encounter Summary ---
Author Organization [facility] Address [address] [place] [address] Care Team Providers Care Delivery Man Name Role Phone Pcp, No Primary Care Provider Unavailabl e Encounter Details Date Type Department Care Team (Late st Contact Info) Description 03/13/2024 Scanned Document [address] [facility] [place] [address] Provider, Generic Social History Tobacco [...] on filedocumented in this encounter Care Teams Delivery Man Relationship Specialty Start Date End Date Pcp, No PCP - General General Medicine 02/13/24 documented as of this encounter
== END 2025-03-06 12:49 | disposition home or self-care (01) ==
LOC: HO.LNP 12:48
PROVIDERS: PCP Internal Medicine; Visit Provider Nurse Practitioner Family
DX: K21.9 Gastro-esophageal reflux disease without esophagitis (principal)
CPT/HCPCS: 83013